=== PATIENT | female | born 1930 | race Caucasian/White ===

== ENCOUNTER 2016-12-18 08:05 | Inpatient (IN) | payer OTHER ==
--- NOTE | 2016-12-18 08:18 | PDOC ---
History of Present Illness - General History Source: Family - History of Present Illness Initial Comments: 12/18/16 08:26 The patient is an 86-year-old woman, [place] Speaking, accompanied by her daughter and son-in-law, with a significant past medical history of hypertension and skin Ca who presents to the emergency department for further evaluation of aphasia at approximately 07:30 am. Information was obtained by patients daughter, who speaks [place] and lives with patient. As per patient 's daughter, the patient is typically ambulatory, performs her daily activities independently and is verbal. Daughter states that the patient was last well seen at 21:30 PM, last night. Patient did not get up throughout the middle of the night. This morning, at approximately 07:30, the patient walked to her son- in-laws room and was noted to have right facial droop and to be non-verbal. Patients son-in-law contacted his , who was working an overnight shift in this hospital. Daughter states that the patient is able to understand and follow commands but remains non-verbal. No history of myocardial infarctions, coronary artery disease, stent placements or previous CVA/TIAs Allergies: NKDA Past Surgical History: Colonoscopy Social History: Never smoked. No ETOH and recreational drug use. Primary Care Physician: Dr. Harry Francisco <Danielle Gamble - Last Filed: 12/18/16 09:56> <Scooter Arellano - Last Filed: 12/18/16 09:57> - General Chief Complaint: CVA/TIA Stated Complaint: SLURRED SPEECH Time Seen by Provider: 12/18/16 08:11 NIH Stroke Scale - Last Known Well Date/Time & Onset Date Last Known Well: 12/17/16 Time Last Known Well: 21:30 - Initial Evaluation Level of consciousness: Alert Ask patient the month and their age: Answers both correctly Ask patient to open & close eyes; make fist and let go: Obeys both correctly Best gaze (horizontal eye movement): Normal Visual field testing: No visual field loss Facial paresis (Show teeth/raise eyebrows/close eyes tight): Minor paralysis ( flattened nasolabial fold, asymmetry on smiling) Motor Function: Left Arm: Normal Motor Function: Right Arm: Normal (extends arm 90 (or 45) degrees for 10 seconds without drift Motor Function: Left Leg: Normal (extends leg 30 degrees for 5 seconds without drift) Motor Function: Right Leg: Normal (extends leg 30 degrees for 5 seconds without drift) Limb Ataxia: No ataxia Sensory(Use pinprick test arms,legs,trunk,face/side to side): Normal Best language (Describe picture, name items, read sentences): Mute Dysarthria (read several words): Near unintelligible or unable to speak Extinction and Inattention: No abnormality - Total Score NIH Stroke Scale Score: 6 <Scooter Arellano - Last Filed: 12/18/16 09:57> tPA Exclusion checklist 3-4.5h - Thrombolytic Therapy Candidate Is patient eligible for thrombolytic therapy: No - Ineligibility reason(s) Reasons No tPA given: Outside of window - delayed arrival <Scooter Arellano - Last Filed: 12/18/16 09:57> Past History <Danielle Gamble - Last Filed: 12/18/16 09:56> - Past Medical History Cancer: Yes (skin cancer) CVA: No HTN: Yes Hypercholesterolemia: No Seizures: No - Psycho/Social/Smoking Cessation Hx Anxiety: No Suicidal Ideation: No Smoking History: Never smoked Have you smoked in the past 12 months: No Information on smoking cessation initiated: No Hx Alcohol Use: No Drug/Substance Use Hx: No Substance Use Type: None <Scooter Arellano - Last Filed: 12/18/16 09:57> - Past Medical History Allergies/Adverse Reactions: Allergies Allergy/AdvReac Type Severity Reaction Status Date / Time No Known Allergies Allergy Verified 12/18/16 08:17 Home Medications: Ambulatory Orders Amlodipine Besylate [Norvasc -] 5 mg PO DAILY 12/18/16 Aspirin [ASA -] 81 mg PO DAILY 12/18/16 Calcium Carbonate/Vitamin D3 [Calcium 600 + D3 Softgel] 1 each PO DAILY Duloxetine HCl [Cymbalta -] 20 mg PO DAILY 12/18/16 Raloxifene HCl 60 mg PO DAILY 12/18/16 Review of Systems - Review of Systems Able to Perform ROS?: No <Scooter Arellano - Last Filed: 12/18/16 09:57> *Physical Exam - Vital Signs Last Vital Signs Temp Pulse Resp BP Pulse Ox 106 H 18 168/72 92 L 12/18/16 08:05 12/18/16 08:05 12/18/16 08:05 12/18/16 08:05 - Physical Exam Comments: 12/18/16 08:27 GENERAL: Alert. Following commands. HEAD: Normal with no signs of trauma. EYES: Pupils equal, round and reactive to light, extraocular movements intact, sclera anicteric, conjunctiva clear with no pallor. ENT: Ears normal, nares patent, oropharynx clear without exudates. Moist mucous membranes. NECK: Normal range of motion, supple without lymphadenopathy, JVD, or masses. LUNGS: Breath sounds equal, clear to auscultation bilaterally. No wheeze/ crackles. HEART: Slight tachycardia but regular rate and rhythm, without murmur or rub. ABDOMEN: Soft/nontender/nondistended. BS wnl. No guarding or rebound. No palpable masses. No hepatosplenomegaly. EXTREMITIES: Normal range of motion, no edema. No clubbing or cyanosis. No cords, erythema, or tenderness. NEUROLOGICAL: See NIHSS. PSYCH: Normal mood, normal affect. SKIN: Warm, Dry, normal turgor, no rashes or lesions noted. <Danielle Gamble - Last Filed: 12/18/16 09:56> - Vital Signs Last Vital Signs Temp Pulse Resp BP Pulse Ox 106 H 18 168/72 92 L 12/18/16 08:05 12/18/16 08:05 12/18/16 08:05 12/18/16 08:05 <Scooter Arellano - Last Filed: 12/18/16 09:57> Heart Score/ECG Review #1 ECG reviewed & interpreted by me at: 08:21 General ECG Interpretation: Sinus Rhythm, Normal Rate (86), Normal Intervals ( IRBBB, QTC 459), No acute ischemic changes <Scooter Arellano - Last Filed: 12/18/16 09:57> ED Treatment Course - LABORATORY CBC & Chemistry Diagram: 12/18/16 08:25 12/18/16 08:25 - RADIOLOGY Radiograph Interpretation: 12/18/16 09:11 EXAM: CT/HEAD CT (STROKE) CT scan of the brain c-. IMPRESSION: Serial axial images of the brain were obtained from foramen magnum to the cranial vertex without intravenous contrast. The study was supplemented with computer-generated coronal and sagittal reconstruction images. [employer] Director image was reviewed. There is no evidence of acute subarachnoid hemorrhage, acute intra -axial or extra-axial fluid collection consistent with subdural or epidural hematoma. No mass effect, midline shift, herniation is present. The cortical sulci, sylvian fissures, perimesencephalic cisterns are not effaced. Lacunar infarct of indeterminate age is noted in the right thalamus measuring 6.2 mm x 2.6 mm. Decreased attenuation of the periventricular white matter is observed on the basis of small vessel ischemic disease. Bilateral (right > left) scattered subcortical hypodensities are observed on the basis of the small vessel ischemic disease. Loss of volume of the brain parenchyma with involutional changes. No evidence of hydrocephalus. Examination of the bone windows show no fracture. The visualized paranasal sinuses and mastoid air cells are clear. Symmetrical optic globes. Unremarkable retro-orbital soft tissues. EXAM: RAD/CHEST X-RAY PORTABLE IMPRESSION: Comparison study February 29, 2016. No evidence of pneumonia, CHF, pleural effusion, or pneumothorax. Unchanged contour of the cardiomediastinal silhouette. Scoliotic curvature of the thoracic spine. Intact visualized osseous structures. EKG leads are noted. <Danielle Gamble - Last Filed: 12/18/16 09:56> - LABORATORY CBC & Chemistry Diagram: 12/18/16 08:25 12/18/16 08:25 <Scooter Arellano - Last Filed: 12/18/16 09:57> Medical Decision Making - Medical Decision Making 12/18/16 09:[address] Garcia. Responsed by Dr. Sequeira at 09:54. Case was discussed. 12/18/16 09:[address] Francisco. Immediate connection. Case was discussed. <Danielle Gamble - Last Filed: 12/18/16 09:56> - Critical Care Time Total Critical Care Time (minutes): 40 Critical Care Statement: The care of this patient involved high complexity decision making to prevent further life threatening deterioration of the patient 's condition and/or to evalute & treat vital organ system(s) failure or risk of failure. - Medical Decision Making 12/18/16 08:19 A portion of this note was documented by scribe services under my direction. I have reviewed the details of the note, within reason, and agree with the documentation with the following case summary and management plan written by me. 86-year-old female with history of hypertension and high cholesterol high functioning and quite independent at baseline according by son-in-law and daughter for presumed stroke. Patient was last seen well at 9:30 last night, slept throughout the night, denies getting up at all, and was noted at 7:30 this morning to be unable to speak after she walked into her son-in-law's room. Brought immediately to the ED, is following commands but nonverbal. Exam as noted 86-year-old female with CVA, last known well without 11 hours ago. Deficits include facial droop and aphasia, extremity strength wnl. Out of window for TPA given onset time. stroke protocol initiated, neuro consult no afib on EKG will treat with asa if ct negative for bleed admission 12/18/16 09:04 CT without acute hemorrhage but evidence of ischemia. Dysphagia screen then asa. CBC wnl, remaining labs pending. Will admit. 12/18/16 09:46 Labs are within normal limits, chest x-ray pending. Accepted by Dr. Zazueta to stroke unit. Discussed with Dr. Garcia, will see the patient and agrees with care. <Scooter Arellano - Last Filed: 12/18/16 09:57> *DC/Admit/Observation/Transfer - Attestations Scribe Attestion: 12/18/16 08:28 Documentation prepared by Danielle Gamble, acting as medical office technologist for Scooter Arellano MD. <Danielle Gamble - Last Filed: 12/18/16 09:56> - Discharge Dispostion Admit: Yes <Scooter Arellano - Last Filed: 12/18/16 09:57> Diagnosis at time of Disposition: Cerebrovascular accident (CVA) Qualifiers: CVA mechanism: unspecified Qualified Code(s): I63.9 - Cerebral infarction, unspecified
[2016-12-18 08:41] LABS: BASOPHIL 0.6 % (0-2.0); EOSINOPHIL 3.5 % (0-4.5); MCH 26.9 pg (25.7-33.7); MCHC 32.4 g/dl (32.0-36.0); MEAN CELL VOLUME 83.1 fl (80-96); MEAN PLT VOLUME 8.2 fl (7.5-11.1); NEUTROPHILS 70.1 % (42.8-82.8); PLATELET COUNT 236 K/MM3 (134-434); RDW 15.6 % (11.6-15.6); WHITE BLOOD COUNT 8.5 K/mm3 (4.0-10.0)
[2016-12-18 08:58] LABS: ALBUMIN 3.5 g/dl (3.4-5.0); ANION GAP 10 (8-16); BILIRUBIN,TOTAL 0.4 mg/dL (0.2-1.0); CALCIUM 8.9 mg/dL (8.5-10.1); CHOLESTEROL 200 mg/dL (50-200); CO2 28 mmol/L (21-32); COCKROFT - GAULT 58.4715; CREATININE 0.5 mg/dL (0.55-1.02); GLUCOSE,RANDOM 100 mg/dL (74-106); LDL CHOLESTEROL (ONLY SJRH) 112 mg/dL (5-100); SGPT/ALT 27 U/L (12-78); TOT PROT 7.7 g/dl (6.4-8.2)
[2016-12-18 09:00] LABS: ALK PHOS 102 U/L (45-117); TROPONIN I < 0.02 ng/ml (0.00-0.05)
[2016-12-18 09:09] LABS: INR 1.05 (0.82-1.09); PROTHROMBIN TIME (PATIENT) 11.6 SEC (9.98-11.88)
[2016-12-18 09:11] LABS: SGOT/AST 32 U/L (15-37)
[2016-12-18] MEDS ORDERED: ASPIRIN 325 MG TABLET PO ONE (09:46)
[2016-12-18 09:57] LABS: URINE APPEARANCE CLEAR; URINE BILIRUBIN NEGATIVE (NEGATIVE); URINE BLOOD NEGATIVE (NEGATIVE); URINE COLOR STRAW; URINE GLUCOSE (UA) NEGATIVE (NEGATIVE); URINE KETONE NEGATIVE (NEGATIVE); URINE NITRITE NEGATIVE (NEGATIVE); URINE PROTEIN NEGATIVE (NEGATIVE); URINE UROBILINOGEN NEGATIVE E.U./dl (0.2-1.0)
[2016-12-18 09:59] LABS: URINE LEUK ESTERASE TRACE (NEGATIVE)
[2016-12-18] MEDS ORDERED: ASPIRIN 325 MG TABLET ONE (10:07)
[2016-12-18 10:09] LABS: URINE BACTERIA RARE /hpf (NONE SEEN); URINE RBC 1 /hpf (0-3); URINE WBC 2 /hpf (3-5)
--- NOTE | 2016-12-18 11:16 | EKG ---
Test Reason : Blood Pressure : / mmHG Vent. Rate : 086 BPM Atrial Rate : 086 BPM P-R Int : 166 ms QRS Dur : 100 ms QT Int : 384 ms P-R-T Axes : 069 034 028 degrees QTc Int : 459 ms NORMAL SINUS RHYTHM INCOMPLETE RIGHT BUNDLE BRANCH BLOCK NONSPECIFIC ST ABNORMALITY ABNORMAL ECG WHEN COMPARED WITH ECG OF 17-JUN-2002 08:56, INCOMPLETE RIGHT BUNDLE BRANCH BLOCK IS NOW PRESENT Confirmed by ESTEFANI CERNA, ADAIR ([id number]) on 12/18/2016 11:16:35 AM Referred By: Confirmed By:ADAIR JARA MD
--- NOTE | 2016-12-18 11:28 | CONSULT ---
Consult - text type - Consultation Consultation Note: Neurology History of Present Illness The patient is an 86-year-old woman, [place] Speaking, accompanied by her granddaughter with past medical history of hypertension and skin Ca who presented to the emergency department for further evaluation of aphasia at approximately 07:30 am per records. Information was obtained by patients granddaughter, who lives with patient. As per patient's granddaughter, the patient is typically ambulatory, performs her daily activities independently and is verbal. Granddaughter states that the patient was last well seen at 21: 30 PM, last night. Patient did not get up throughout the middle of the night. This morning, at approximately 07:30, the patient walked to her son-in-laws room and was noted to have right facial droop and to be having difficult producing speech. Strength and sensation does not appear to have been an issue. Reviewing her medication, I did see ASA 81mg, and granddaughter believes she is compliant with medication. She was not a TPA candidate as she was no longer in window. CT head completed and showed lacunar infarct of indeterminate age is noted in the right thalamus measuring 6.2 mm x 2.6 mm. I would expection lesion in L Broca's area not R thalamus. MRI will be needed. NIH Stroke Scale - Last Known Well Date/Time & Onset Date Last Known Well: 12/17/16 Time Last Known Well: 21:30 - Initial Evaluation Level of consciousness: Alert Ask patient the month and their age: Answers both correctly Ask patient to open & close eyes; make fist and let go: Obeys both correctly Best gaze (horizontal eye movement): Normal Visual field testing: No visual field loss Facial paresis (Show teeth/raise eyebrows/close eyes tight): Minor paralysis ( flattened nasolabial fold, asymmetry on smiling) Motor Function: Left Arm: Normal Motor Function: Right Arm: Normal (extends arm 90 (or 45) degrees for 10 seconds without drift Motor Function: Left Leg: Normal (extends leg 30 degrees for 5 seconds without drift) Motor Function: Right Leg: Normal (extends leg 30 degrees for 5 seconds without drift) Limb Ataxia: No ataxia Sensory(Use pinprick test arms,legs,trunk,face/side to side): Normal Best language (Describe picture, name items, read sentences): Mute Dysarthria (read several words): Near unintelligible or unable to speak Extinction and Inattention: No abnormality - Total Score NIH Stroke Scale Score: 6 tPA Exclusion checklist 3-4.5h - Thrombolytic Therapy Candidate Is patient eligible for thrombolytic therapy: No - Ineligibility reason(s) Reasons No tPA given: Outside of window - delayed arrival Past History Cancer: Yes (skin cancer) CVA: No HTN: Yes Hypercholesterolemia: No Seizures: No - Psycho/Social/Smoking Cessation Hx Anxiety: No Suicidal Ideation: No Smoking History: Never smoked Have you smoked in the past 12 months: No Information on smoking cessation initiated: No Hx Alcohol Use: No Drug/Substance Use Hx: No Substance Use Type: None - Past Medical History Allergies/Adverse Reactions: Allergies Allergy/AdvReac Type Severity Reaction Status Date / Time No Known Allergies Allergy Verified 12/18/16 08:17 Home Medications: Ambulatory Orders Amlodipine Besylate [Norvasc -] 5 mg PO DAILY 12/18/16 Aspirin [ASA -] 81 mg PO DAILY 12/18/16 Calcium Carbonate/Vitamin D3 [Calcium 600 + D3 Softgel] 1 each PO DAILY Duloxetine HCl [Cymbalta -] 20 mg PO DAILY 12/18/16 Raloxifene HCl 60 mg PO DAILY 12/18/16 Review of Systems - Review of Systems Able to Perform ROS?: No *Physical Exam - Vital Signs Last Vital Signs Temp Pulse Resp BP Pulse Ox 106 H 18 168/72 92 L 12/18/16 08:05 12/18/16 08:05 12/18/16 08:05 12/18/16 08:05 GENERAL: Alert. Following commands. HEAD: Normal with no signs of trauma. EYES: Pupils equal, round and reactive to light, extraocular movements intact, sclera anicteric, conjunctiva clear with no pallor. ENT: Ears normal, nares patent, oropharynx clear without exudates. Moist mucous membranes. NECK: Normal range of motion, supple without lymphadenopathy, JVD, or masses. LUNGS: Breath sounds equal, clear to auscultation bilaterally. No wheeze/ crackles. HEART: Slight tachycardia but regular rate and rhythm, without murmur or rub. ABDOMEN: Soft/nontender/nondistended. BS wnl. No guarding or rebound. No palpable masses. No hepatosplenomegaly. EXTREMITIES: Normal range of motion, no edema. No clubbing or cyanosis. No cords, erythema, or tenderness. NEUROLOGICAL: above PSYCH: Normal mood, normal affect. SKIN: Warm, Dry, normal turgor, no rashes or lesions noted. - RADIOLOGY EXAM: CT/HEAD CT (STROKE) CT scan of the brain c-. IMPRESSION: Serial axial images of the brain were obtained from foramen magnum to the cranial vertex without intravenous contrast. The study was supplemented with computer-generated coronal and sagittal reconstruction images. [employer] Operator image was reviewed. There is no evidence of acute subarachnoid hemorrhage, acute intra -axial or extra-axial fluid collection consistent with subdural or epidural hematoma. No mass effect, midline shift, herniation is present. The cortical sulci, sylvian fissures, perimesencephalic cisterns are not effaced. Lacunar infarct of indeterminate age is noted in the right thalamus measuring 6.2 mm x 2.6 mm. Decreased attenuation of the periventricular white matter is observed on the basis of small vessel ischemic disease. Bilateral (right > left) scattered subcortical hypodensities are observed on the basis of the small vessel ischemic disease. Loss of volume of the brain parenchyma with involutional changes. No evidence of hydrocephalus. Examination of the bone windows show no fracture. The visualized paranasal sinuses and mastoid air cells are clear. Symmetrical optic globes. Unremarkable retro-orbital soft tissues. EXAM: RAD/CHEST X-RAY PORTABLE IMPRESSION: Comparison study February 29, 2016. No evidence of pneumonia, CHF, pleural effusion, or pneumothorax. Unchanged contour of the cardiomediastinal silhouette. Scoliotic curvature of the thoracic spine. Intact visualized osseous structures. EKG leads are noted. CBCD WBC 8.5 K/mm3 (4.0-10.0) 12/18/16 08:25 RBC 5.64 M/mm3 (3.60-5.2) H 12/18/16 08:25 Hgb 15.2 GM/dL (10.7-15.3) 12/18/16 08:25 Hct 46.8 % (32.4-45.2) H 12/18/16 08:25 MCV 83.1 fl (80-96) 12/18/16 08:25 MCHC 32.4 g/dl (32.0-36.0) 12/18/16 08:25 RDW 15.6 % (11.6-15.6) 12/18/16 08:25 Plt Count 236 K/MM3 (134-434) 12/18/16 08:25 MPV 8.2 fl (7.5-11.1) 12/18/16 08:25 CMP Sodium 141 mmol/L (136-145) 12/18/16 08:25 Potassium 4.4 mmol/L (3.5-5.1) 12/18/16 08:25 Chloride 103 mmol/L (98-107) 12/18/16 08:25 Carbon Dioxide 28 mmol/L (21-32) 12/18/16 08:25 Anion Gap 10 (8-16) 12/18/16 08:25 BUN 18 mg/dL (7-18) 12/18/16 08:25 Creatinine 0.5 mg/dL (0.55-1.02) L 12/18/16 08:25 Creat Clearance w eGFR > 60 (>60) 12/18/16 08:25 Calcium 8.9 mg/dL (8.5-10.1) 12/18/16 08:25 Total Bilirubin 0.4 mg/dL (0.2-1.0) 12/18/16 08:25 AST 32 U/L (15-37) D 12/18/16 08:25 ALT 27 U/L (12-78) 12/18/16 08:25 Alkaline Phosphatase 102 U/L (45-117) 12/18/16 08:25 Total Protein 7.7 g/dl (6.4-8.2) 12/18/16 08:25 Albumin 3.5 g/dl (3.4-5.0) 12/18/16 08:25 Medical Decision Making 86-year-old woman, [place] Speaking, accompanied by her granddaughter with past medical history of hypertension and skin Ca who presented to the emergency department for further evaluation of aphasia. She was not a TPA candidate as she was no longer in window. CT head completed and showed lacunar infarct of indeterminate age is noted in the right thalamus measuring 6.2 mm x 2.6 mm. I would expection lesion in L Broca's area not R thalamus. MRI will be needed. Also recommend CD, Echo, Lipid profile check. Speech and swallow eval. Allow permissive HTN (up to 220/110) until tomorrow morning then up to 160/100. May need to be switched from ASA 81 to Aggrenox if CVA confirmed.
[2016-12-18 16:02] VITALS: BMI 26.2
[2016-12-18] MEDS ORDERED: DEXTROSE 5%-1/3 NS - 500 ML IV SCH (17:15)
--- NOTE | 2016-12-18 23:30 | HP ---
Admitting History and Physical - Primary Care Physician PCP: Harry Francisco - Admission Chief Complaint: Aphasia History of Present Illness: Around 7.30 this AM family noted that she was aphasic with severe difficulty in expressing but had no weakness of arms or legs.Brought to ED and a CT of the brain showed an old infarct in the thalamic area but without any new lesions. She was treated with ASA and was admitted for further management MRI of the brain was performed which showed an acute left frontal cortical infarct. History Source: Patient, Family Member Limitations to Obtaining History: No Limitations - Past Medical History Cardiovascular: Yes: HTN Musculoskeletal: Yes: Chronic low back pain, Osteoarthritis - Smoking History Smoking history: Never smoked Have you smoked in the past 12 months: No - Alcohol/Substance Use Hx Alcohol Use: No - Social History Usual Living Arrangement: Yes: Other (lives with daughter) ADL: Independent History of Recent Travel: No Home Medications - Allergies Allergies/Adverse Reactions: Allergies Allergy/AdvReac Type Severity Reaction Status Date / Time No Known Allergies Allergy Verified 12/18/16 08:17 - Home Medications Home Medications: Ambulatory Orders Amlodipine Besylate [Norvasc -] 5 mg PO DAILY 12/18/16 Aspirin [ASA -] 81 mg PO DAILY 12/18/16 Calcium Carbonate/Vitamin D3 [Calcium 600 + D3 Softgel] 1 each PO DAILY Duloxetine HCl [Cymbalta -] 20 mg PO DAILY 12/18/16 Raloxifene HCl 60 mg PO DAILY 12/18/16 Review of Systems - Review of Systems Constitutional: reports: Weakness Eyes: reports: No Symptoms HENT: reports: No Symptoms Neck: reports: No Symptoms Cardiovascular: reports: No Symptoms Respiratory: reports: No Symptoms Genitourinary: reports: No Symptoms Musculoskeletal: reports: Back Pain, Joint Pain Integumentary: reports: No Symptoms Neurological: reports: Change in Speech, Dizziness, Incoordination Endocrine: reports: No Symptoms Hematology/Lymphatic: reports: No Symptoms Psychiatric: reports: No Symptoms Physical Examination Vital Signs: Vital Signs Temperature 98.4 F 12/18/16 19:48 Pulse Rate 81 12/18/16 19:48 Respiratory Rate 18 12/18/16 19:48 Blood Pressure 132/59 12/18/16 19:48 O2 Sat by Pulse Oximetry (%) 99 12/18/16 16:32 Constitutional: Yes: Well Nourished, Anxious Eyes: Yes: WNL HENT: Yes: WNL Neck: Yes: Supple Cardiovascular: Yes: Regular Rate and Rhythm, S1, S2 Respiratory: Yes: Regular, CTA Bilaterally Gastrointestinal: Yes: Normal Bowel Sounds, Soft Breast(s): Yes: WNL Musculoskeletal: Yes: Back Pain Extremities: Yes: WNL Peripheral Pulses WNL: Yes Neurological: Yes: Alert, Oriented, Cran Nerves II-XII Intact, Dysarthria ...Motor Strength: WNL Psychiatric: Yes: Alert, Oriented Imaging - Results Cat Scan: Report Reviewed MRI: Report Reviewed, Image Reviewed EKG: Report Reviewed, Image Reviewed Problem List - Problems (1) Cerebrovascular accident (CVA) Assessment/Plan: Aphasic during admission but gradually speech became slurred and she was able to communicate Code(s): I63.9 - CEREBRAL INFARCTION, UNSPECIFIED Qualifiers: CVA mechanism: unspecified Qualified Code(s): I63.9 - Cerebral infarction, unspecified (2) Hyperlipidemia Assessment/Plan: borderline elevation of lipids Code(s): E78.5 - HYPERLIPIDEMIA, UNSPECIFIED (3) Hypertension Assessment/Plan: hypertension well controlled with meds Code(s): I10 - ESSENTIAL (PRIMARY) HYPERTENSION (4) Osteoarthritis Code(s): M19.90 - UNSPECIFIED OSTEOARTHRITIS, UNSPECIFIED SITE Assessment/Plan Continue to observe with Aspirin only at present. To physical therapy if no further neurological deficit
--- NOTE | 2016-12-19 11:50 | CONSULT ---
Admitting History and Physical - Primary Care Physician PCP: Harry Francisco - Admission History of Present Illness: Per Neuro 12/18/16 EMR: "History of Present Illness The patient is an 86-year-old woman, Russian Speaking, accompanied by her granddaughter with past medical history of hypertension and skin Ca who presented to the emergency department for further evaluation of aphasia at approximately 07:30 am per records. Information was obtained by patients granddaughter, who lives with patient. As per patient's granddaughter, the patient is typically ambulatory, performs her daily activities independently and is verbal. Granddaughter states that the patient was last well seen at 21: 30 PM, last night. Patient did not get up throughout the middle of the night. This morning, at approximately 07:30, the patient walked to her son-in-laws room and was noted to have right facial droop and to be having difficult producing speech. Strength and sensation does not appear to have been an issue. Reviewing her medication, I did see ASA 81mg, and granddaughter believes she is compliant with medication. She was not a TPA candidate as she was no longer in window. CT head completed and showed lacunar infarct of indeterminate age is noted in the right thalamus measuring 6.2 mm x 2.6 mm. I would expection lesion in L Broca's area not R thalamus. " Daughter served as informant and market research executive. She reports that her mother was always dependent on others to help her. She did not shop for groceries herself but did perform ADL. Once her father passed in [place], she brought her mother to live with her and she has cared for her. - Smoking History Smoking history: Never smoked Have you smoked in the past 12 months: No - Alcohol/Substance Use Hx Alcohol Use: No History - Admission Reason For Visit: CVA - Diagnostics MRI: Report Reviewed (Left frontal cortical and subcortical infacts) - General Mental Status: Alert and Oriented, Awake and Alert, Able to Follow Commands, Forgetful (per daughter. Not observed.) Attention: Intact Ability to Follow Directions: Good Head/Neck Control: WFL - Hearing Hearing: Normal Speech Evaluation - Communication Primary Language: EQUATORIAL GUINEAN Communication: Yes: Dysarthria Oral Expression Ability: Yes: Mild Impairment - Speech Production Able to Make Needs Known: Yes: Mildly Impaired Intelligibility: Yes: Mildly Impaired - Speech Characteristics Voice Loudness: Normal Voice Pitch: Yes: Normal Voice Phonatory-based Quality: Yes: Normal Speech Clarity: < 75% Nasal Resonance: Normal Articulation: Yes: Imprecise (mild) Rate of Speech: Intact - Language/Auditory Comprehension Follows: Yes: 1 Stage Simple Commands Observation: Able to respond to yes/no queries: Yes, Yes/No Confusion: No, Comprehends Conversational Speech: Yes - Language/Verbal Expression Able to Respond to Simple Queries: Yes: WNL Able to Communicate Wants and Needs: Yes: WNL Functional Communication Status: Yes: WNL - Swallow Evaluation/Bedside Assessment Current Nutritional Intake: Dysphagia Pureed, Thin Liquids Oral Secretions: Yes: WFL Dentition: Yes: Edentulous, Dental Appliance Upper (AT HOME) Facial Symmetry at Rest: Facial Droop Right Facial Symmetry on Retraction: Facial Droop Right Against Resistance Opening: Normal Against Resistance Closing: Normal Pucker Lips: Droops Right Smile: Droops Right Lingual Movement: Symmetric Lingual Movement Characteristics: Normal Velopharyngeal Movement: Normal Laryngeal Elevation: WFL Laryngeal Movement: Able to Palpate Rate of Intake: WFL Bolus Size: WFL Labial Seal: WFL Chewing: Impaired (missing dentition, needs very soft consistency) Oral Prep Time: WFL A-P Transit: WFL Pocketing: None Timing of Swallow: WFL Coughing/Throat Clear: No Change in Voice: No Recommendations - Speech Evaluation, Impression/Plan Impression: Language production has apparently improved as compared to documented function upon admission. She is able to express herself in sentences , stating that she lookewd in the mirror and she noted a facial droop. She is o x month, date,[facility]. Right facial with mild dysarthria at this time. Good naming, repetition,improved fluency of speech, during speech, language, cognitive, swallowing eval, with daughter serving as japanese interpreter.Not apparently Aphasic at this time, although language barrier adversely affects full w/u, based on japanese interpreter's assistance. 3 oz water test (-). Edentulous with upper dentures at home. - Disposition Discharge to: Home with Assist - Dysphagia Impressions/Plan Dysphagia Impressions: Ongoing Evaluation *Silent aspiration: cannot be R/O at bedside Dysphagia Treatment Plan: Small Bites, Chin Tuck/Down, Safe Rate, 1/2 tsp. at a time, Elevate HOB during feed Recommendations: Modified Barium Swallow (if cough, congestion, fever) - Recommendations Diet Consistency: Dysphagia Minced Liquids: Thin Liquids
--- NOTE | 2016-12-19 12:45 | CON.CARD ---
Consult Consult Specialty:: cardiology Reason for Consultation:: CVA - History of Present Illness Chief Complaint: Pt denies chest pain or dyspnea; +garbled speech History of Present Illness: The patient is an 86-year-old woman, Ugandan Speaking, accompanied by her daughter and son-in-law, with a significant past medical history of hypertension and skin Ca who presents to the emergency department for further evaluation of aphasia at approximately 07:30 am. Information was obtained by patients daughter, who speaks Ugandan and lives with patient. As per patient 's daughter, the patient is typically ambulatory, performs her daily activities independently and is verbal. Daughter states that the patient was last well seen at 21:30 PM, last night. Patient did not get up throughout the middle of the night. This morning, at approximately 07:30, the patient walked to her son- in-laws room and was noted to have right facial droop and to be non-verbal. Patients son-in-law contacted his , who was working an overnight shift in this hospital. Daughter states that the patient is able to understand and follow commands but remains non-verbal. No history of myocardial infarctions, coronary artery disease, stent placements or previous CVA/TIAs Allergies: NKDA Past Surgical History: Colonoscopy Social History: Never smoked. No ETOH and recreational drug use. Primary Care Physician: Dr. Harry Francisco - History Source History Provided By: Patient, Family Member, Medical Record Limitations to Obtaining History: No Limitations - Past Medical History Cardio/Vascular: Yes: Hyperlipdemia Reproductive: Yes: Postmenopausal ...: No Musculoskeletal: Yes: Chronic low back pain - Alcohol/Substance Use Hx Alcohol Use: No - Smoking History Smoking history: Never smoked Have you smoked in the past 12 months: No Home Medications - Allergies Allergies/Adverse Reactions: Allergies Allergy/AdvReac Type Severity Reaction Status Date / Time No Known Allergies Allergy Verified 12/18/16 08:17 - Home Medications Home Medications: Ambulatory Orders Amlodipine Besylate [Norvasc -] 5 mg PO DAILY 12/18/16 Aspirin [ASA -] 81 mg PO DAILY 12/18/16 Calcium Carbonate/Vitamin D3 [Calcium 600 + D3 Softgel] 1 each PO DAILY Duloxetine HCl [Cymbalta -] 20 mg PO DAILY 12/18/16 Raloxifene HCl 60 mg PO DAILY 04/10/17 Family Disease History - Family Disease History Family History: Denies Review of Systems - Review of Systems Constitutional: reports: Weakness Eyes: reports: No Symptoms HENT: reports: No Symptoms Neck: reports: No Symptoms Musculoskeletal: reports: Back Pain Neurological: reports: Change in Speech Psychiatric: reports: Anxiety - Risk Factors Known Risk Factors: Yes: Age, Hypercholesterolemia, Physical Inactivity Vital Signs: Vital Signs Temperature 98.4 F 12/19/16 10:00 Pulse Rate 86 12/19/16 10:00 Respiratory Rate 20 12/19/16 10:00 Blood Pressure 130/61 12/19/16 10:00 O2 Sat by Pulse Oximetry (%) 98 12/19/16 10:00 Constitutional: Yes: Anxious Eyes: Yes: WNL HENT: Yes: WNL, Other (facial droop) Neck: Yes: WNL Respiratory: Yes: Regular Gastrointestinal: Yes: Soft Renal/: No: Anuria Cardiovascular: Yes: Regular Rate and Rhythm JVD: No Carotid Bruit: No PMI: Non-Displaced Heart Sounds: Yes: S1, S2 Murmur: Yes: Systolic Murmur, Grade 1 Musculoskeletal: Yes: Back Pain, Muscle Weakness Extremities: Yes: Cool Edema: No Peripheral Pulses WNL: Yes Integumentary: Yes: WNL Neurological: Yes: Alert, Oriented Psychiatric: Yes: Alert, Oriented - Other Data Labs, Other Data: INR, PTT INR 1.05 (0.82-1.09) 12/18/16 08:25 Stress Echo: Report Reviewed Imaging - Results Chest X-ray: Image Reviewed (no acute pathology) EKG: Image Reviewed (NSR; incomplete RBBB; nonspecific T wave changes) Problem List - Problems (1) Hyperlipidemia Assessment/Plan: Start atorvastatin; keep LDL cholesterol < 70 mg/dL. F/u ECHO for LVEF, wall motion, r/o thrombi. Code(s): E78.5 - HYPERLIPIDEMIA, UNSPECIFIED (2) Cerebrovascular accident (CVA) Assessment/Plan: acute cortical infarcts. Aggressive control of BP and lipids. On ASA. F/u with neurologist. Code(s): I63.9 - CEREBRAL INFARCTION, UNSPECIFIED Qualifiers: CVA mechanism: unspecified Qualified Code(s): I63.9 - Cerebral infarction, unspecified
--- NOTE | 2016-12-19 12:56 | PN ---
Progress Note (short form) - Note Progress Note: Neurology History of Present Illness The patient is an 86-year-old woman, Welsh Speaking, accompanied by her granddaughter yesterday to ER with past medical history of hypertension and skin Ca who presented for further evaluation of aphasia. Overnight, MRI brain completed and showed acute L frontal infarct along with small chronic R frontal , R thalamic, and b/l cerebellar infarcts. Her daughter was at bedside and states her speech is much improved today. Her infarct is consistent with localization I was expecting. Her other infarcts do increase suspicion for possible emboli though these small infarcts may more likely be 2/2 to HTN. I would like to increase her to full dose ASA instead of 81mg, if PMD is in agreement. Alternatively, ASA 81 with Plavix 75 combo therapy can also be considered. Past History Cancer: Yes (skin cancer) CVA: No HTN: Yes Hypercholesterolemia: No Seizures: No - Psycho/Social/Smoking Cessation Hx Anxiety: No Suicidal Ideation: No Smoking History: Never smoked Have you smoked in the past 12 months: No Information on smoking cessation initiated: No Hx Alcohol Use: No Drug/Substance Use Hx: No Substance Use Type: None - Past Medical History Allergies/Adverse Reactions: Allergies Allergy/AdvReac Type Severity Reaction Status Date / Time No Known Allergies Allergy Verified 12/18/16 08:17 Home Medications: Ambulatory Orders Amlodipine Besylate [Norvasc -] 5 mg PO DAILY 12/18/16 Aspirin [ASA -] 81 mg PO DAILY 12/18/16 Calcium Carbonate/Vitamin D3 [Calcium 600 + D3 Softgel] 1 each PO DAILY Duloxetine HCl [Cymbalta -] 20 mg PO DAILY 12/18/16 Raloxifene HCl 60 mg PO DAILY 12/18/16 *Physical Exam Vital Signs Temperature 98.4 F 12/19/16 10:00 Pulse Rate 86 12/19/16 10:00 Respiratory Rate 20 12/19/16 10:00 Blood Pressure 130/61 12/19/16 10:00 O2 Sat by Pulse Oximetry (%) 98 12/19/16 10:00 GENERAL: Alert. Following commands. HEAD: Normal with no signs of trauma. EYES: Pupils equal, round and reactive to light, extraocular movements intact, sclera anicteric, conjunctiva clear with no pallor. ENT: Ears normal, nares patent, oropharynx clear without exudates. Moist mucous membranes. NECK: Normal range of motion, supple without lymphadenopathy, JVD, or masses. LUNGS: Breath sounds equal, clear to auscultation bilaterally. No wheeze/ crackles. HEART: Slight tachycardia but regular rate and rhythm, without murmur or rub. ABDOMEN: Soft/nontender/nondistended. BS wnl. No guarding or rebound. No palpable masses. No hepatosplenomegaly. EXTREMITIES: Normal range of motion, no edema. No clubbing or cyanosis. No cords, erythema, or tenderness. NEUROLOGICAL: CN intact, minimal dysarthria, minimal aphasia per daughter, strenght intact 5/5, sensory intact - RADIOLOGY CT head and MRI brain completed and reviewed CBCD WBC 8.5 K/mm3 (4.0-10.0) 12/18/16 08:25 RBC 5.64 M/mm3 (3.60-5.2) H 12/18/16 08:25 Hgb 15.2 GM/dL (10.7-15.3) 12/18/16 08:25 Hct 46.8 % (32.4-45.2) H 12/18/16 08:25 MCV 83.1 fl (80-96) 12/18/16 08:25 MCHC 32.4 g/dl (32.0-36.0) 12/18/16 08:25 RDW 15.6 % (11.6-15.6) 12/18/16 08:25 Plt Count 236 K/MM3 (134-434) 12/18/16 08:25 MPV 8.2 fl (7.5-11.1) 12/18/16 08:25 CMP Sodium 141 mmol/L (136-145) 12/18/16 08:25 Potassium 4.4 mmol/L (3.5-5.1) 12/18/16 08:25 Chloride 103 mmol/L (98-107) 12/18/16 08:25 Carbon Dioxide 28 mmol/L (21-32) 12/18/16 08:25 Anion Gap 10 (8-16) 12/18/16 08:25 BUN 18 mg/dL (7-18) 12/18/16 08:25 Creatinine 0.5 mg/dL (0.55-1.02) L 12/18/16 08:25 Creat Clearance w eGFR > 60 (>60) 12/18/16 08:25 Calcium 8.9 mg/dL (8.5-10.1) 12/18/16 08:25 Total Bilirubin 0.4 mg/dL (0.2-1.0) 12/18/16 08:25 AST 32 U/L (15-37) D 12/18/16 08:25 ALT 27 U/L (12-78) 12/18/16 08:25 Alkaline Phosphatase 102 U/L (45-117) 12/18/16 08:25 Total Protein 7.7 g/dl (6.4-8.2) 12/18/16 08:25 Albumin 3.5 g/dl (3.4-5.0) 12/18/16 08:25 Medical Decision Making 86-year-old woman, Welsh Speaking, accompanied by her granddaughter yesterday to ER with past medical history of hypertension and skin Ca who presented for further evaluation of aphasia. Overnight, MRI brain completed and showed acute L frontal infarct along with small chronic R frontal, R thalamic, and b/l cerebellar infarcts. Her daughter was at bedside and states her speech is much improved today. Her infarct is consistent with localization I was expecting. Her other infarcts do increase suspicion for possible emboli though these small infarcts may more likely be 2/2 to HTN. I would like to increase her to full dose ASA instead of 81mg, if PMD is in agreement. Alternatively, ASA 81 with Plavix 75 combo therapy can also be considered. Recommend CD, Echo, Lipid profile check, stain. Speech and swallow eval. BP up to 160/100 is acceptable Speech therapy, PT/OT
[2016-12-19] MEDS ORDERED: ATORVASTATIN CA 20 MG TABLET (FP) PO SCH (13:15)
--- NOTE | 2016-12-19 21:01 | PN ---
Progress Note, Physician History of Present Illness: Patient's speech improved since admission and is now almost normal' Denies any weakness in arms or legs and was able to walk this afternoon. Denies any dysphagia.Denies any incontinence. - Current Medication List Current Medications: Active Medications Aspirin (Ecotrin -) 81 mg PO DAILY [facility] Atorvastatin Calcium (Lipitor -) 20 mg PO DAILY [facility] Last Admin: 12/19/16 14:32 Dose: 20 mg Clopidogrel Bisulfate (Plavix -) 75 mg PO DAILY [facility] - Objective Vital Signs: Vital Signs Temperature 98.5 F 12/19/16 18:00 Pulse Rate 75 12/19/16 18:00 Respiratory Rate 18 12/19/16 18:00 Blood Pressure 124/57 12/19/16 18:00 O2 Sat by Pulse Oximetry (%) 98 12/19/16 20:05 Constitutional: Yes: Well Nourished, No Distress, Calm Eyes: Yes: WNL, Conjunctiva Clear, EOM Intact HENT: Yes: WNL, Atraumatic, Normocephalic Neck: Yes: WNL, Supple, Trachea Midline Cardiovascular: Yes: Regular Rate and Rhythm, S1, S2 Respiratory: Yes: Regular, CTA Bilaterally Gastrointestinal: Yes: Normal Bowel Sounds, Soft Genitourinary: Yes: WNL Breast(s): Yes: WNL Musculoskeletal: Yes: Back Pain Extremities: Yes: WNL Edema: No Peripheral Pulses WNL: Yes Integumentary: Yes: WNL Neurological: Yes: Alert, Oriented, Cran Nerves II-XII Intact ...Motor Strength: WNL Psychiatric: Yes: Alert, Oriented Labs: INR, PTT INR 1.05 (0.82-1.09) 12/18/16 08:25 - ....Imaging X-ray: Report Reviewed, Image Reviewed MRI: Report Reviewed, Image Reviewed EKG: Report Reviewed, Image Reviewed Problem List - Problems (1) Cerebrovascular accident (CVA) Assessment/Plan: MRI shows acute infarct. Will cont ecotrin and add Plavix. Code(s): I63.9 - CEREBRAL INFARCTION, UNSPECIFIED Qualifiers: CVA mechanism: unspecified Qualified Code(s): I63.9 - Cerebral infarction, unspecified (2) Hyperlipidemia Assessment/Plan: Started on Lipitor Code(s): E78.5 - HYPERLIPIDEMIA, UNSPECIFIED (3) Hypertension Code(s): I10 - ESSENTIAL (PRIMARY) HYPERTENSION (4) Osteoarthritis Code(s): M19.90 - UNSPECIFIED OSTEOARTHRITIS, UNSPECIFIED SITE Assessment/Plan Continue Aspirin and add Plavix. MRI shows patency of internal carotids. Continue physical therapy
[2016-12-19] MEDS: ASPIRIN COATED 81 MG TABLET.EC PO SCH (21:21)
[2016-12-19] MEDS: CLOPIDOGREL BISULFATE 75 MG TABLET (FP) PO SCH (21:21)
[2016-12-20 08:02] LABS: BASOPHIL 0.6 % (0-2.0); EOSINOPHIL 5.2 % (0-4.5); MCH 27.6 pg (25.7-33.7); MCHC 33.1 g/dl (32.0-36.0); MEAN CELL VOLUME 83.3 fl (80-96); MEAN PLT VOLUME 8.6 fl (7.5-11.1); NEUTROPHILS 66.3 % (42.8-82.8); PLATELET COUNT 192 K/MM3 (134-434); RDW 15.6 % (11.6-15.6); WHITE BLOOD COUNT 7.6 K/mm3 (4.0-10.0)
[2016-12-20 08:33] LABS: ALBUMIN 2.8 g/dl (3.4-5.0); ANION GAP 8 (8-16); BILIRUBIN,TOTAL 0.3 mg/dL (0.2-1.0); CALCIUM 8.3 mg/dL (8.5-10.1); CO2 31 mmol/L (21-32); COCKROFT - GAULT 72.3945; CREATININE 0.5 mg/dL (0.55-1.02); GLUCOSE,RANDOM 73 mg/dL (74-106); SGOT/AST 30 U/L (15-37); SGPT/ALT 27 U/L (12-78); TOT PROT 6.1 g/dl (6.4-8.2)
[2016-12-20 08:34] LABS: ALK PHOS 84 U/L (45-117)
[2016-12-20] MEDS: ASPIRIN COATED 81 MG TABLET.EC PO SCH (09:57)
[2016-12-20] MEDS: CLOPIDOGREL BISULFATE 75 MG TABLET (FP) PO SCH (09:57)
--- NOTE | 2016-12-20 11:56 | PN ---
Progress Note (short form) - Note Progress Note: Neurology History of Present Illness The patient is an 86-year-old woman, Cameroonian Speaking, accompanied by her granddaughter to ER with past medical history of hypertension and skin Ca who presented for further evaluation of aphasia.MRI brain completed and showed acute L frontal infarct along with small chronic R frontal, R thalamic, and b/l cerebellar infarcts. Her speech is much improved per son at bedside. Her infarct is consistent with localization I was expecting. Her other infarcts do increase suspicion for possible emboli though these small infarcts may more likely be 2/2 to HTN. Patient now on combo ASA 81 with Plavix 75. Also on Statin. Active Medications Aspirin (Ecotrin -) 81 mg PO DAILY [facility] Last Admin: 12/20/16 09:57 Dose: 81 mg Atorvastatin Calcium (Lipitor -) 20 mg PO HS [facility] Clopidogrel Bisulfate (Plavix -) 75 mg PO DAILY [facility] Last Admin: 12/20/16 09:57 Dose: 75 mg *Physical Exam Vital Signs Temperature 98.4 F 12/19/16 10:00 Pulse Rate 86 12/19/16 10:00 Respiratory Rate 20 12/19/16 10:00 Blood Pressure 130/61 12/19/16 10:00 O2 Sat by Pulse Oximetry (%) 98 12/19/16 10:00 GENERAL: Alert. Following commands. HEAD: Normal with no signs of trauma. EYES: Pupils equal, round and reactive to light, extraocular movements intact, sclera anicteric, conjunctiva clear with no pallor. ENT: Ears normal, nares patent, oropharynx clear without exudates. Moist mucous membranes. NECK: Normal range of motion, supple without lymphadenopathy, JVD, or masses. LUNGS: Breath sounds equal, clear to auscultation bilaterally. No wheeze/ crackles. HEART: Slight tachycardia but regular rate and rhythm, without murmur or rub. ABDOMEN: Soft/nontender/nondistended. BS wnl. No guarding or rebound. No palpable masses. No hepatosplenomegaly. EXTREMITIES: Normal range of motion, no edema. No clubbing or cyanosis. No cords, erythema, or tenderness. NEUROLOGICAL: CN intact, minimal dysarthria, minimal aphasia per daughter, strenght intact 5/5, sensory intact - RADIOLOGY CT head and MRI brain completed and reviewed CBCD WBC 8.5 K/mm3 (4.0-10.0) 12/18/16 08:25 RBC 5.64 M/mm3 (3.60-5.2) H 12/18/16 08:25 Hgb 15.2 GM/dL (10.7-15.3) 12/18/16 08:25 Hct 46.8 % (32.4-45.2) H 12/18/16 08:25 MCV 83.1 fl (80-96) 12/18/16 08:25 MCHC 32.4 g/dl (32.0-36.0) 12/18/16 08:25 RDW 15.6 % (11.6-15.6) 12/18/16 08:25 Plt Count 236 K/MM3 (134-434) 12/18/16 08:25 MPV 8.2 fl (7.5-11.1) 12/18/16 08:25 CMP Sodium 141 mmol/L (136-145) 12/18/16 08:25 Potassium 4.4 mmol/L (3.5-5.1) 12/18/16 08:25 Chloride 103 mmol/L (98-107) 12/18/16 08:25 Carbon Dioxide 28 mmol/L (21-32) 12/18/16 08:25 Anion Gap 10 (8-16) 12/18/16 08:25 BUN 18 mg/dL (7-18) 12/18/16 08:25 Creatinine 0.5 mg/dL (0.55-1.02) L 12/18/16 08:25 Creat Clearance w eGFR > 60 (>60) 12/18/16 08:25 Calcium 8.9 mg/dL (8.5-10.1) 12/18/16 08:25 Total Bilirubin 0.4 mg/dL (0.2-1.0) 12/18/16 08:25 AST 32 U/L (15-37) D 12/18/16 08:25 ALT 27 U/L (12-78) 12/18/16 08:25 Alkaline Phosphatase 102 U/L (45-117) 12/18/16 08:25 Total Protein 7.7 g/dl (6.4-8.2) 12/18/16 08:25 Albumin 3.5 g/dl (3.4-5.0) 12/18/16 08:25 Medical Decision Making 86-year-old woman, Cameroonian Speaking, accompanied by her granddaughter to ER with past medical history of hypertension and skin Ca who presented for further evaluation of aphasia.MRI brain completed and showed acute L frontal infarct along with small chronic R frontal, R thalamic, and b/l cerebellar infarcts. Her speech is much improved per son at bedside. Her infarct is consistent with localization I was expecting. Her other infarcts do increase suspicion for possible emboli though these small infarcts may more likely be 2/2 to HTN. Patient now on combo ASA 81 with Plavix 75 and should be continued Also on Statin and should be continued Speech therapy Follow up Echo and CD with cards BP up to 160/100 is acceptable, outpatient goal <140/90
--- NOTE | 2016-12-20 12:56 | PN ---
Progress Note, Physician History of Present Illness: The patient is an 86-year-old woman, Romanian Speaking, accompanied by her daughter and son-in-law, with a significant past medical history of hypertension and skin Ca who presents to the emergency department for further evaluation of aphasia at approximately 07:30 am. Information was obtained by patients daughter, who speaks Romanian and lives with patient. As per patient 's daughter, the patient is typically ambulatory, performs her daily activities independently and is verbal. Daughter states that the patient was last well seen at 21:30 PM, last night. Patient did not get up throughout the middle of the night. This morning, at approximately 07:30, the patient walked to her son- in-laws room and was noted to have right facial droop and to be non-verbal. Patients son-in-law contacted his , who was working an overnight shift in this hospital. Daughter states that the patient is able to understand and follow commands but remains non-verbal. No history of myocardial infarctions, coronary artery disease, stent placements or previous CVA/TIAs Allergies: NKDA Past Surgical History: Colonoscopy Social History: Never smoked. No ETOH and recreational drug use. Primary Care Physician: Dr. Harry Francisco - Current Medication List Current Medications: Active Medications Aspirin (Ecotrin -) 81 mg PO DAILY [facility] Last Admin: 12/20/16 09:57 Dose: 81 mg Atorvastatin Calcium (Lipitor -) 20 mg PO HS [facility] Clopidogrel Bisulfate (Plavix -) 75 mg PO DAILY [facility] Last Admin: 12/20/16 09:57 Dose: 75 mg - Objective Vital Signs: Vital Signs Temperature 98.4 F 12/20/16 10:00 Pulse Rate 77 12/20/16 10:00 Respiratory Rate 18 12/20/16 10:00 Blood Pressure 123/63 12/20/16 10:00 O2 Sat by Pulse Oximetry (%) 98 12/20/16 10:00 Eyes: Yes: WNL, Conjunctiva Clear, EOM Intact HENT: Yes: WNL, Atraumatic, Normocephalic Neck: Yes: WNL, Supple, Trachea Midline Cardiovascular: Yes: WNL, Regular Rate and Rhythm Respiratory: Yes: WNL, Regular, CTA Bilaterally Gastrointestinal: Yes: WNL, Normal Bowel Sounds Genitourinary: Yes: WNL Musculoskeletal: Yes: WNL Extremities: Yes: WNL Edema: No Integumentary: Yes: WNL Neurological: Yes: Alert, Oriented ...Motor Strength: WNL Psychiatric: Yes: WNL Labs: CBC, BMP 12/20/16 06:20 12/20/16 06:20 INR, PTT INR 1.05 (0.82-1.09) 12/18/16 08:25 Assessment/Plan Problems (1) Hyperlipidemia Assessment/Plan: Start atorvastatin; keep LDL cholesterol < 70 mg/dL. F/u ECHO for LVEF, wall motion, r/o thrombi. Code(s): E78.5 - HYPERLIPIDEMIA, UNSPECIFIED (2) Cerebrovascular accident (CVA) Assessment/Plan: acute cortical infarcts. aphasia improoving Aggressive control of BP and lipids. On ASA. F/u with neurologist.
--- NOTE | 2016-12-20 13:11 | PN ---
Progress Note, [employer] - Note Progress Note: Selected Entries 12/19/16 12/19/16 12/19/16 02:00 06:00 10:00 Breakfast Lunch Temperature 99.7 F H 98.2 F 98.4 F 12/19/16 12/19/16 12/19/16 11:48 14:08 18:00 Breakfast 100% Lunch 75% Temperature 97.9 F 98.5 F 12/19/16 12/20/16 12/20/16 21:25 01:00 06:00 Breakfast Lunch Temperature 98.1 F 98.1 F 98.8 F 12/20/16 12/20/16 10:00 11:12 Breakfast 25% Lunch Temperature 98.4 F Laboratory Tests 12/18/16 12/20/16 08:25 06:20 WBC 8.5 7.6 Pt's speech improving. Suspected close to baseline? Tolerating diet with signs or symptoms of dysphagia,
--- NOTE | 2016-12-20 20:58 | PN ---
Progress Note, Physician History of Present Illness: Continues improve with speech almost normal. Was able to walk in the room with some assistance. Denies any weakness of arms or legs. Denies any CP, SOB - Current Medication List Current Medications: Active Medications Aspirin (Ecotrin -) 81 mg PO DAILY [facility] Last Admin: 12/20/16 09:57 Dose: 81 mg Atorvastatin Calcium (Lipitor -) 20 mg PO [facility] Clopidogrel Bisulfate (Plavix -) 75 mg PO DAILY [facility] Last Admin: 12/20/16 09:57 Dose: 75 mg - Objective Vital Signs: Vital Signs Temperature 99.0 F 12/20/16 17:46 Pulse Rate 74 12/20/16 17:46 Respiratory Rate 18 12/20/16 17:46 Blood Pressure 137/70 12/20/16 17:46 O2 Sat by Pulse Oximetry (%) 98 12/20/16 10:00 Constitutional: Yes: Well Nourished, No Distress, Calm Eyes: Yes: WNL, Conjunctiva Clear, EOM Intact HENT: Yes: WNL Neck: Yes: WNL Cardiovascular: Yes: Regular Rate and Rhythm, S1, S2 Respiratory: Yes: Regular, CTA Bilaterally Gastrointestinal: Yes: Normal Bowel Sounds, Soft Genitourinary: Yes: WNL Musculoskeletal: Yes: Back Pain Extremities: Yes: WNL Edema: No Peripheral Pulses WNL: Yes Integumentary: Yes: WNL Neurological: Yes: Alert, Oriented, Cran Nerves II-XII Intact ...Motor Strength: WNL Psychiatric: Yes: Alert, Oriented Labs: CBC, BMP 12/20/16 06:20 12/20/16 06:20 INR, PTT INR 1.05 (0.82-1.09) 12/18/16 08:25 - ....Imaging Other: Report Reviewed Problem List - Problems (1) Cerebrovascular accident (CVA) Assessment/Plan: No change in the neuro exam, cont observation Code(s): I63.9 - CEREBRAL INFARCTION, UNSPECIFIED Qualifiers: CVA mechanism: unspecified Qualified Code(s): I63.9 - Cerebral infarction, unspecified (2) Hyperlipidemia Code(s): E78.5 - HYPERLIPIDEMIA, UNSPECIFIED (3) Hypertension Assessment/Plan: BP under good control Code(s): I10 - ESSENTIAL (PRIMARY) HYPERTENSION (4) Osteoarthritis Code(s): M19.90 - UNSPECIFIED OSTEOARTHRITIS, UNSPECIFIED SITE Assessment/Plan Echo shows mod aortic regurgitation. Neurologically continues to improve. Continue Plavix and Aspirin. Continue Physical therapy.
[2016-12-20] MEDS ORDERED: ATORVASTATIN CA 20 MG TABLET (FP) PO SCH (22:00)
[2016-12-20] MEDS ORDERED: POLYETHYLENE GLYCOL 3350 119 GM BTL PO ONE (22:30)
[2016-12-21 07:57] LABS: ALBUMIN 2.9 g/dl (3.4-5.0); ALK PHOS 88 U/L (45-117); ANION GAP 7 (8-16); BILIRUBIN,TOTAL 0.3 mg/dL (0.2-1.0); CALCIUM 8.2 mg/dL (8.5-10.1); CO2 32 mmol/L (21-32); COCKROFT - GAULT 60.3245; CREATININE 0.6 mg/dL (0.55-1.02); GLUCOSE,RANDOM 79 mg/dL (74-106); SGOT/AST 24 U/L (15-37); SGPT/ALT 26 U/L (12-78); TOT PROT 6.3 g/dl (6.4-8.2)
--- NOTE | 2016-12-21 09:21 | PN ---
Progress Note, Physician Chief Complaint: Pt denies chest pain or dyspnea. Mild right facial droop evident; speaks more clearly. History of Present Illness: The patient is an 86-year-old woman (bakari Prescott), accompanied by her daughter and son-in-law, with a significant past medical history of hypertension and skin Ca, who presents to the emergency department for further evaluation of aphasia at approximately 07:30 am. Information was obtained by patient and her daughter, who speaks Indonesian and lives with patient. Patient is typically ambulatory, performs her daily activities independently and is verbal. Daughter states that the patient was last well seen at 21:30 PM, last night. Patient did not get up throughout the middle of the night. This morning, at approximately 07:30, the patient walked to her son-in-laws room and was noted to have right facial droop and to be non-verbal. Patients son-in-law contacted his , who was working an overnight shift in this hospital. Daughter states that the patient is able to understand and follow commands but remains non- verbal. No history of myocardial infarctions, coronary artery disease, stent placements or previous CVA/TIAs Allergies: NKDA Past Surgical History: Colonoscopy Social History: Never smoked. No ETOH and recreational drug use. Primary Care Physician: Dr. Harry Francisco - Current Medication List Current Medications: Active Medications Aspirin (Ecotrin -) 81 mg PO DAILY [facility] Last Admin: 12/20/16 09:57 Dose: 81 mg Atorvastatin Calcium (Lipitor -) 20 mg PO HS [facility] Last Admin: 12/20/16 21:10 Dose: 20 mg Clopidogrel Bisulfate (Plavix -) 75 mg PO DAILY [facility] Last Admin: 12/20/16 09:57 Dose: 75 mg - Objective Vital Signs: Vital Signs Temperature 98.0 F 12/21/16 06:00 Pulse Rate 73 12/21/16 06:00 Respiratory Rate 20 12/21/16 06:00 Blood Pressure 121/59 12/21/16 06:00 O2 Sat by Pulse Oximetry (%) 96 12/20/16 21:00 Constitutional: Yes: Calm Eyes: Yes: WNL HENT: Yes: WNL Neck: Yes: WNL Cardiovascular: Yes: Regular Rate and Rhythm Respiratory: Yes: WNL Gastrointestinal: Yes: Soft ...Rectal Exam: Yes: Deferred Genitourinary: No: Anuria Breast(s): Yes: WNL Musculoskeletal: Yes: Muscle Weakness Extremities: Yes: WNL Edema: No Peripheral Pulses WNL: Yes Integumentary: Yes: WNL Neurological: Yes: Alert, Oriented, Weakness Psychiatric: Yes: WNL Labs: CBC, BMP 12/20/16 06:20 12/21/16 06:30 INR, PTT INR 1.05 (0.82-1.09) 12/18/16 08:25 Problem List - Problems (1) Hyperlipidemia Assessment/Plan: Start atorvastatin; keep LDL cholesterol < 70 mg/dL. Code(s): E78.5 - HYPERLIPIDEMIA, UNSPECIFIED (2) Cerebrovascular accident (CVA) Assessment/Plan: acute and chronic cortical infarcts. Aggressive control of BP and lipids. On ASA and clopidogrel. F/u with neurologist noted; much improved neurologically. ECHO: normal LVEF; abnormal diastolic compliance; moderate AR and TR; mild MR; no ASD, PFO, or thrombi noted. Code(s): I63.9 - CEREBRAL INFARCTION, UNSPECIFIED Qualifiers: CVA mechanism: unspecified Qualified Code(s): I63.9 - Cerebral infarction, unspecified
[2016-12-21] MEDS: ASPIRIN COATED 81 MG TABLET.EC PO SCH (09:37)
[2016-12-21] MEDS: CLOPIDOGREL BISULFATE 75 MG TABLET (FP) PO SCH (09:37)
--- NOTE | 2016-12-21 13:07 | PN ---
Progress Note (short form) - Note Progress Note: Neurology History of Present Illness The patient is an 86-year-old woman, Moh[place] Speaking, accompanied by her granddaughter to ER with past medical history of hypertension and skin Ca who presented for further evaluation of aphasia.MRI brain completed and showed acute L frontal infarct along with small chronic R frontal, R thalamic, and b/l cerebellar infarcts. Her speech is much improved per son at bedside. Her infarct is consistent with localization I was expecting. Her other infarcts do increase suspicion for possible emboli though these small infarcts may more likely be 2/2 to HTN. Patient now on combo ASA 81 with Plavix 75. Also on Statin. Echo completed and normal LV function and Ejection Fraction. Active Medications Aspirin (Ecotrin -) 81 mg PO DAILY [facility] Last Admin: 12/21/16 09:37 Dose: 81 mg Atorvastatin Calcium (Lipitor -) 20 mg PO HS [facility] Last Admin: 12/20/16 21:10 Dose: 20 mg Clopidogrel Bisulfate (Plavix -) 75 mg PO DAILY [facility] Last Admin: 12/21/16 09:37 Dose: 75 mg *Physical Exam Vital Signs Temperature 98.2 F 12/21/16 09:00 Pulse Rate 86 12/21/16 09:00 Respiratory Rate 18 12/21/16 09:00 Blood Pressure 124/63 12/21/16 09:00 O2 Sat by Pulse Oximetry (%) 96 12/20/16 21:00 GENERAL: Alert. Following commands. HEAD: Normal with no signs of trauma. EYES: Pupils equal, round and reactive to light, extraocular movements intact, sclera anicteric, conjunctiva clear with no pallor. ENT: Ears normal, nares patent, oropharynx clear without exudates. Moist mucous membranes. NECK: Normal range of motion, supple without lymphadenopathy, JVD, or masses. LUNGS: Breath sounds equal, clear to auscultation bilaterally. No wheeze/ crackles. HEART: Slight tachycardia but regular rate and rhythm, without murmur or rub. ABDOMEN: Soft/nontender/nondistended. BS wnl. No guarding or rebound. No palpable masses. No hepatosplenomegaly. EXTREMITIES: Normal range of motion, no edema. No clubbing or cyanosis. No cords, erythema, or tenderness. NEUROLOGICAL: CN intact, minimal dysarthria, minimal aphasia per daughter, strenght intact 5/5, sensory intact - RADIOLOGY CT head and MRI brain completed and reviewed CBCD WBC 7.6 K/mm3 (4.0-10.0) 12/20/16 06:20 RBC 4.73 M/mm3 (3.60-5.2) 12/20/16 06:20 Hgb 13.0 GM/dL (10.7-15.3) D 12/20/16 06:20 Hct 39.4 % (32.4-45.2) D 12/20/16 06:20 MCV 83.3 fl (80-96) 12/20/16 06:20 MCHC 33.1 g/dl (32.0-36.0) 12/20/16 06:20 RDW 15.6 % (11.6-15.6) 12/20/16 06:20 Plt Count 192 K/MM3 (134-434) 12/20/16 06:20 MPV 8.6 fl (7.5-11.1) 12/20/16 06:20 CMP Sodium 144 mmol/L (136-145) 12/21/16 06:30 Potassium 4.9 mmol/L (3.5-5.1) 12/21/16 06:30 Chloride 105 mmol/L (98-107) 12/21/16 06:30 Carbon Dioxide 32 mmol/L (21-32) 12/21/16 06:30 Anion Gap 7 (8-16) L 12/21/16 06:30 BUN 11 mg/dL (7-18) D 12/21/16 06:30 Creatinine 0.6 mg/dL (0.55-1.02) 12/21/16 06:30 Creat Clearance w eGFR > 60 (>60) 12/21/16 06:30 Calcium 8.2 mg/dL (8.5-10.1) L 12/21/16 06:30 Total Bilirubin 0.3 mg/dL (0.2-1.0) 12/21/16 06:30 AST 24 U/L (15-37) 12/21/16 06:30 ALT 26 U/L (12-78) 12/21/16 06:30 Alkaline Phosphatase 88 U/L (45-117) 12/21/16 06:30 Total Protein 6.3 g/dl (6.4-8.2) L 12/21/16 06:30 Albumin 2.9 g/dl (3.4-5.0) L 12/21/16 06:30 Medical Decision Making 86-year-old woman, Moh[place] Speaking, accompanied by her granddaughter to ER with past medical history of hypertension and skin Ca who presented for further evaluation of aphasia.MRI brain completed and showed acute L frontal infarct along with small chronic R frontal, R thalamic, and b/l cerebellar infarcts. Her speech is much improved per son at bedside. Her infarct is consistent with localization I was expecting. Her other infarcts do increase suspicion for possible emboli though these small infarcts may more likely be 2/2 to HTN. Patient now on combo ASA 81 with Plavix 75 and should be continued Also on Statin and should be continued Speech therapy Follow up Echo and CD with cards BP up to 160/100 is acceptable, outpatient goal <140/90 Family reports speech is near baseline, encouraged them to continue verbal output
--- NOTE | 2016-12-21 15:04 | DS ---
Physical Examination Vital Signs: Vital Signs Temperature 98.2 F 12/21/16 09:00 Pulse Rate 86 12/21/16 09:00 Respiratory Rate 18 12/21/16 09:00 Blood Pressure 124/63 12/21/16 09:00 O2 Sat by Pulse Oximetry (%) 96 12/21/16 09:00 Findings/Remarks: Fully recovered the speech and is ambulating. Constitutional: Yes: Well Nourished, No Distress, Calm Eyes: Yes: WNL, Conjunctiva Clear, EOM Intact HENT: Yes: WNL, Atraumatic, Normocephalic Neck: Yes: Supple Cardiovascular: Yes: Regular Rate and Rhythm, S1, S2 Respiratory: Yes: Regular, CTA Bilaterally Gastrointestinal: Yes: Normal Bowel Sounds, Soft Renal/: Yes: WNL Breast(s): Yes: WNL Musculoskeletal: Yes: Back Pain Edema: No Peripheral Pulses WNL: Yes Integumentary: Yes: WNL Neurological: Yes: Alert, Oriented ...Motor Strength: WNL Psychiatric: Yes: Alert, Oriented Labs: CBC, BMP 12/20/16 06:20 12/21/16 06:30 Discharge Summary Reason For Visit: CVA Current Active Problems Cerebrovascular accident (CVA) (Acute) Hyperlipidemia (Acute) Hypertension (Acute) Osteoarthritis (Acute) Procedures: Principal: CT scan brain. MRI of brain. Carotid duplex. Echocardiogram Hospital Course: Was admitted with aphasia but there was no other focal deficit. She was started on Aspirin. CT of brain showed old infarcts MRI of brain was done without contrast and showed an acute left frontal infarct but a;so showed small punctate infarcts. She was observed and given puree diet. She was started on PT and also showed marked in her speech, During this hosp stay her Amlodipine was d/c and BP stayed in the normal range She is being discharge home and VNS was started. Condition: Improved - Instructions Referrals: Harry Francisco MD [Primary Care Provider] - Disposition: HOME - Home Medications Comprehensive Discharge Medication List: Ambulatory Orders Amlodipine Besylate [Norvasc -] 5 mg PO DAILY 12/18/16 Aspirin [ASA -] 81 mg PO DAILY 12/18/16 Calcium Carbonate/Vitamin D3 [Calcium 600 + D3 Softgel] 1 each PO DAILY Duloxetine HCl [Cymbalta -] 20 mg PO DAILY 12/18/16 Raloxifene HCl 60 mg PO DAILY 12/18/16
[2016-12-21 15:32] VITALS: BP 119/56; PULSE 75; TEMP 97.8
== END 2016-12-21 16:55 | disposition home or self-care (01) | DRG 66 ==
LOC: JER 08:05 → JERBED 09:53 → J4S 15:36
PROVIDERS: ADMIT Internal Medicine Hematology & Oncology; ATTEND Internal Medicine Hematology & Oncology
DX: I63.8 Other cerebral infarction (principal); R29.706 NIHSS score 6; I69.320 Aphasia following cerebral infarction; I10 Essential (primary) hypertension; E78.5 Hyperlipidemia, unspecified; M54.5 Low back pain; M19.90 Unspecified osteoarthritis, unspecified site; Z85.828 Personal history of other malignant neoplasm of skin
CPT/HCPCS: 36415; 70450-TC; 70551-TC; 71010-TC; 80053; 81003; 81015; 82465; 82550; 83718; 83721; 84478; 84484; 85025; 85610; 86850; 86900; 86901; 93005; 93010; 93306-TC; 93880-TC; 97116-GP; 97161-GP; 99285-25

== ENCOUNTER 2017-04-03 05:19 | Inpatient (IN) | payer OTHER ==
[2017-04-03] MEDS ORDERED: ALBUTEROL SO4 2.5/IPRATROPIUM 0.5 INH SOL 3 ML VIAL.NEB. NEB ONE (05:27)
[2017-04-03 05:54] LABS: VENOUS PH 7.35 (7.32-7.42)
[2017-04-03 05:56] LABS: VENOUS BLOOD GAS HCO3 28.6 meq/L (19-25)
--- NOTE | 2017-04-03 05:57 | PDOC ---
Attending Attestation - Resident Resident Name: Christos Ibanez - HPI HPI: 04/06/17 01:53 Pt presents to the ED complaining of the acute onset of shortness of breath. Denies chest pain. - Physicial Exam PE: 04/06/17 01:54 Patient is tachypneic and tachycardic with rales in the bases on lung exam. - Medical Decision Making 04/06/17 01:55 Pt presents to the ED complaining of shortness of breath. Tachypneic and tachycardic on arrival to the ED. Initial EKG shows isolated SELENA in lead II. EKG evaluated by Dr. Collins, who feels that the EKG does not show ischemia. Differential includes CHF, asthma, ACS, PNA. Will check labs and CXR, admit to medicine.
[2017-04-03 06:02] LABS: BASOPHIL 0.2 % (0-2.0); EOSINOPHIL 0.4 % (0-4.5); MCH 26.7 pg (25.7-33.7); MCHC 32.4 g/dl (32.0-36.0); MEAN CELL VOLUME 82.3 fl (80-96); MEAN PLT VOLUME 8.6 fl (7.5-11.1); NEUTROPHILS 85.2 % (42.8-82.8); PLATELET COUNT 224 K/MM3 (134-434)
[2017-04-03 06:21] LABS: INR 1.16 (0.82-1.09); PROTHROMBIN TIME (PATIENT) 12.8 SEC (9.98-11.88)
[2017-04-03 06:24] LABS: ACTIVATED PTT 35.1 SECONDS (26.9-34.4)
--- NOTE | 2017-04-03 06:43 | PDOC ---
History of Present Illness - General Chief Complaint: Shortness of Breath Stated Complaint: DIFFICULTY BREATHING Time Seen by Provider: 04/03/17 05:35 History Source: Family (Mother and daughter at bedside) - History of Present Illness Initial Comments: 04/03/17 06:34 The patient is a 86F with a PMH of HTN and TIA who presented to the ED with CASSY. History was provided by the daughter and granddaughter.The daughter states that the patient had a headache last night and took 2 tylenol for this. This morning at 4 am the patient was found on the cough with difficulty breathing and gasping. the granddaughter was called and saw the patient at 430 heavily breathing but not in pain. That's when they came to [facility] ED. Allergies: None Social: none Surg: noncontributory Past History - Past Medical History Allergies/Adverse Reactions: Allergies Allergy/AdvReac Type Severity Reaction Status Date / Time No Known Allergies Allergy Verified 12/18/16 08:17 Home Medications: Ambulatory Orders Amlodipine Besylate [Norvasc -] 5 mg PO DAILY 12/18/16 Aspirin [ASA -] 81 mg PO DAILY 12/18/16 Calcium Carbonate/Vitamin D3 [Calcium 600 + D3 Softgel] 1 each PO DAILY Duloxetine HCl [Cymbalta -] 20 mg PO DAILY 12/18/16 Raloxifene HCl 60 mg PO DAILY 12/18/16 Cancer: Yes (skin cancer) CVA: No HTN: Yes Hypercholesterolemia: No Seizures: No - Immunization History Td Vaccination: No TDAP Vaccination: No Immunization Up to Date: Yes - Psycho/Social/Smoking Cessation Hx Anxiety: No Suicidal Ideation: No Smoking History: Unknown if ever smoked Have you smoked in the past 12 months: No Number of Cigarettes Smoked Daily: 1 Information on smoking cessation initiated: No Hx Alcohol Use: No Drug/Substance Use Hx: No Substance Use Type: None Review of Systems - Review of Systems Able to Perform ROS?: No *Physical Exam - Vital Signs Last Vital Signs Temp Pulse Resp BP Pulse Ox 99.2 F 95 H 40 H 126/58 100 04/03/17 05:50 04/03/17 06:00 04/03/17 06:00 04/03/17 06:00 04/03/17 06:00 - Physical Exam General Appearance: Yes: Nourished, Appropriately Dressed, Moderate Distress HEENT: positive: Normal Voice. negative: Tonsillar Exudate, Tonsillar Erythema , Excessive drooling Respiratory/Chest: positive: Respiratory Distress, Accessory Muscle Use, Decreased Breath Sounds, Crackles (b/l basilar). negative: Chest Tender Cardiovascular: positive: Regular Rhythm, S1, S2, Tachycardia Gastrointestinal/Abdominal: positive: Flat, Soft. negative: Tender Extremity: negative: Pedal Edema, Swelling, Calf Tenderness Integumentary: positive: Warm, Clammy Neurologic: positive: Motor Strength 5/5 Heart Score/ECG Review - ECG Impressions Comment:: 04/03/17 06:55 Isolated SELENA in leads III, possibly in V5 and V6. ED Treatment Course - LABORATORY CBC & Chemistry Diagram: 04/03/17 05:43 04/03/17 05:43 - ADDITIONAL ORDERS Additional order review: Laboratory Results 04/03/17 04/03/17 04/03/17 05:43 05:43 05:35 VBG pH 7.35 POC VBG pCO2 53.1 H POC VBG pO2 30.9 Mixed VBG HCO3 28.6 H Sodium Cancelled Potassium Cancelled Chloride Cancelled Carbon Dioxide Cancelled Anion Gap Cancelled BUN Cancelled Creatinine Cancelled Creat Clearance w eGFR Cancelled Random Glucose Cancelled Calcium Cancelled Total Bilirubin Cancelled AST Cancelled ALT Cancelled Alkaline Phosphatase Cancelled Creatine Kinase Cancelled Troponin I Cancelled B-Natriuretic Peptide Cancelled Total Protein Cancelled Albumin Cancelled 04/03/17 05:43 RBC 5.57 H MCV 82.3 MCHC 32.4 RDW 16.0 H MPV 8.6 Neutrophils % 85.2 H D Lymphocytes % 5.9 L D Monocytes % 8.3 Eosinophils % 0.4 D Basophils % 0.2 - RADIOLOGY Radiology Studies Ordered: Category Date Time Status CHEST X-RAY PORTABLE* [RAD] Stat Radiology 04/03/17 05:35 Taken Medical Decision Making - Medical Decision Making 04/03/17 06:51 The patient is an 86F with a PMH of HTN and TIA who presented with CASSY. We moved her to a room very quickly and assessed vitals. She was tachypneic and tachycardic, stable BP. The patient was given a nebulizer treatment and stated that she felt better although she continued to stay tachypneic and tachycardic. EKG's were questionable for a STEMI and we called Dr. Karina, who decided that he was not impressed with the EKG's. He recommended stabilizing treatments. We activated the sepsis protocol and will be monitoring the patient closely as well as the results. Patient's daughter wants her to go to [address] [place] [id number] because that's where she works.
[2017-04-03 07:02] LABS: ALBUMIN 3.6 g/dl (3.4-5.0); ANION GAP 8 (8-16); BILIRUBIN,TOTAL 0.4 mg/dL (0.2-1.0); CALCIUM 9.2 mg/dL (8.5-10.1); CO2 29 mmol/L (21-32); CREATININE 0.5 mg/dL (0.55-1.02); GLUCOSE,RANDOM 138 mg/dL (74-106); SGOT/AST 25 U/L (15-37); SGPT/ALT 22 U/L (12-78); TOT PROT 7.1 g/dl (6.4-8.2)
[2017-04-03 07:03] LABS: ALK PHOS 98 U/L (45-117)
[2017-04-03] MEDS ORDERED: ASPIRIN 81 MG CHEWABLE TABLETS PO ONE ×2 (07:29→14:30)
[2017-04-03 07:44] LABS: TROPONIN I < 0.02 ng/ml (0.00-0.05)
[2017-04-03] MEDS ORDERED: predniSONE 20 MG TABLET (UD) PO ONE (07:46)
[2017-04-03] MEDS ORDERED: CEFEPIME HCL 1 GM VIAL (RESTRICTED TO ID) IVPB ONE (07:49)
[2017-04-03] MEDS ORDERED: predniSONE 20 MG TABLET (UD) ONE (07:53)
[2017-04-03] MEDS ORDERED: CEFEPIME 100 ML IVPB ONE (07:54)
[2017-04-03] MEDS ORDERED: VANCOMYCIN 1 GRAM (PRE-DOCKED) 250 ML IVPB ONE (07:54)
[2017-04-03] MEDS ORDERED: ASPIRIN 81 MG CHEWABLE TABLETS ONE ×2 (07:54→13:38)
[2017-04-03] MEDS ORDERED: ACETAMINOPHEN/CAFFEINE/BUTALBITAL 1 TAB PO ONE (08:01)
[2017-04-03] MEDS ORDERED: ACETAMINOPHEN/CAFFEINE/BUTALBITAL 1 TAB ONE (08:17)
[2017-04-03] MEDS ORDERED: AZITHROMYCIN 250 MG TABLET (FP) PO ONE (08:26)
[2017-04-03] MEDS ORDERED: AZITHROMYCIN IVPB 500 MG in DEXTROSE 5%-WATER - 250 ML IVPB ONE (08:28)
[2017-04-03] MEDS ORDERED: AZITHROMYCIN IVPB 250 ML IVPB ONE (08:47)
--- NOTE | 2017-04-03 09:04 | PDOC ---
*Physical Exam - Vital Signs Last Vital Signs Temp Pulse Resp BP Pulse Ox 99.2 F 102 H 16 123/61 97 04/03/17 05:50 04/03/17 07:55 04/03/17 07:55 04/03/17 07:55 04/03/17 07:55 - Physical Exam General Appearance: Yes: Nourished, Appropriately Dressed, Thin HEENT: positive: EOMI, NATALIIA Neck: positive: Trachea midline, Supple Respiratory/Chest: positive: Other (Patient on 2L NC, no accessory muscle use, however labored respirations ) Cardiovascular: positive: Regular Rhythm, Regular Rate Gastrointestinal/Abdominal: positive: Normal Bowel Sounds, Flat, Soft Integumentary: positive: Normal Color, Dry, Warm Neurologic: positive: Fully Oriented, Alert ED Treatment Course - LABORATORY CBC & Chemistry Diagram: 04/03/17 05:43 04/03/17 06:28 - ADDITIONAL ORDERS Additional order review: Laboratory Results 04/03/17 04/03/17 04/03/17 06:28 06:28 05:43 INR PTT (Actin FS) VBG pH POC VBG pCO2 POC VBG pO2 Mixed VBG HCO3 Sodium 139 Potassium 4.3 Chloride 102 Carbon Dioxide 29 Anion Gap 8 BUN 16 D Creatinine 0.5 L Creat Clearance w eGFR > 60 Random Glucose 138 H D Lactic Acid Calcium 9.2 Total Bilirubin 0.4 D AST 25 ALT 22 Alkaline Phosphatase 98 Creatine Kinase 49 Troponin I < 0.02 B-Natriuretic Peptide Cancelled Total Protein 7.1 Albumin 3.6 D Anti-A Titer Blood Type Antibody Screen Spec Expiration Date 04/03/17 04/03/17 04/03/17 05:43 05:43 05:43 INR PTT (Actin FS) VBG pH POC VBG pCO2 POC VBG pO2 Mixed VBG HCO3 Sodium Cancelled Potassium Cancelled Chloride Cancelled Carbon Dioxide Cancelled Anion Gap Cancelled BUN Cancelled Creatinine Cancelled Creat Clearance w eGFR Cancelled Random Glucose Cancelled Lactic Acid 2.0 Calcium Cancelled Total Bilirubin Cancelled AST Cancelled ALT Cancelled Alkaline Phosphatase Cancelled Creatine Kinase Cancelled Troponin I Cancelled B-Natriuretic Peptide Total Protein Cancelled Albumin Cancelled Anti-A Titer Cancelled Blood Type Cancelled Antibody Screen Cancelled Spec Expiration Date Cancelled 04/03/17 04/03/17 05:43 05:35 INR 1.16 H PTT (Actin FS) 35.1 H VBG pH 7.35 POC VBG pCO2 53.1 H POC VBG pO2 30.9 Mixed VBG HCO3 28.6 H Sodium Potassium Chloride Carbon Dioxide Anion Gap BUN Creatinine Creat Clearance w eGFR Random Glucose Lactic Acid Calcium Total Bilirubin AST ALT Alkaline Phosphatase Creatine Kinase Troponin I B-Natriuretic Peptide Total Protein Albumin Anti-A Titer Blood Type Antibody Screen Spec Expiration Date 04/03/17 05:43 RBC 5.57 H MCV 82.3 MCHC 32.4 RDW 16.0 H MPV 8.6 Neutrophils % 85.2 H D Lymphocytes % 5.9 L D Monocytes % 8.3 Eosinophils % 0.4 D Basophils % 0.2 - Medications Given in the ED: ED Medications Discontinued Medications Generic Name Dose Route Start Last Admin Trade Name Freq PRN Reason Stop Dose Admin Acetaminophen/Butalbital/Caffeine 1 tablet 04/03/17 08:01 04/03/17 08:19 Fioricet - PO 04/03/17 08:02 1 tablet ONCE ONE Administration Aspirin 162 mg 04/03/17 07:29 04/03/17 07:55 Asa - PO 04/03/17 07:30 162 mg ONCE ONE Administration Cefepime HCl 1 gm 04/03/17 07:49 04/03/17 07:55 Maxipime (Restricted To Id) - IVPB 04/03/17 07:50 1 gm ONCE ONE Administration Protocol Prednisone 40 mg 04/03/17 07:46 04/03/17 07:55 Deltasone - PO 04/03/17 07:47 40 mg ONCE ONE Administration Medical Decision Making - Medical Decision Making 04/03/17 09:31 Patient signed out by Drs. John (Attending) and Shamar (resident) Patient is a 86 y.o. female who presents with shortness of breath. As patient was SIRS 2/4 (tachycardia (100's), tachypnea (30's-40's) Blood Cultures and CXR were ordered. CXR showed no acute cardiopulmonary process. EKG showed a RBB, and cardiology consult did not reccomend w/u for GA. Patient's PCP, Dr. Zazueta , was contacted and patient was started on Zithromax, Cefepime and Vancomycin at his instruction and admitted to Telemetry for observation. *DC/Admit/Observation/Transfer Diagnosis at time of Disposition: Respiratory distress, acute - Discharge Dispostion Admit: Yes - Referrals - Patient Instructions - Post Discharge Activity - Attestations Physician Attestion: 04/03/17 09:09 I, Dr. Francoise Castellanos, attest that this document has been prepared under my direction and personally reviewed by me in its entirety. I further attest, that it accurately reflects all work, treatment, procedures and medical decision -making performed by me.
[2017-04-03 09:42] LABS: URINE APPEARANCE CLEAR; URINE BILIRUBIN NEGATIVE (NEGATIVE); URINE BLOOD NEGATIVE (NEGATIVE); URINE COLOR YELLOW; URINE GLUCOSE (UA) NEGATIVE (NEGATIVE); URINE KETONE NEGATIVE (NEGATIVE); URINE LEUK ESTERASE NEGATIVE (NEGATIVE); URINE NITRITE NEGATIVE (NEGATIVE); URINE PROTEIN NEGATIVE (NEGATIVE); URINE UROBILINOGEN NEGATIVE mg/dL (0.2-1.0)
[2017-04-03] MEDS ORDERED: VANCOMYCIN 2,000 MG in DEXTROSE 5%-WATER - 500 ML IVPB SCH (10:00)
[2017-04-03 12:07] VITALS: BMI 24.4
--- NOTE | 2017-04-03 13:15 | EKG ---
Test Reason : Blood Pressure : / mmHG Vent. Rate : 086 BPM Atrial Rate : 086 BPM P-R Int : 176 ms QRS Dur : 104 ms QT Int : 374 ms P-R-T Axes : 068 005 024 degrees QTc Int : 447 ms NORMAL SINUS RHYTHM ATRIAL ABNORMALITY INCOMPLETE RIGHT BUNDLE BRANCH BLOCK INFERIOR INFARCT (CITED ON OR BEFORE 03-APR-2017) ACUTE SD / STEMI ABNORMAL ECG PERSISTANT Q WAVES III AND aVF AND UPWARDS COVING OF ST SEGMENTS IN II, III aVF COMPATIBLE WITH CURRENT OF INJURY. T WAVE INVERSION NO LONGER EVIDENT IN ANTEROLATERAL LEADS FOLLOW TRACINGS ARE RECOMMENDED Confirmed by LINDA DAWKINS MD ([id number]) on 04/03/2017 1:15:23 PM Referred By: Confirmed By:LINDA DAWKINS MD
[2017-04-03 13:50] LABS: TROPONIN I < 0.02 ng/ml (0.00-0.05)
[2017-04-03] MEDS ORDERED: HEPARIN INFUSION - 500 ML IVPB ONE (14:02)
[2017-04-03] MEDS ORDERED: METOPROLOL TARTRATE 25 MG TABLET (FP) ONE (14:04)
--- NOTE | 2017-04-03 14:06 | EKG ---
Test Reason : Blood Pressure : / mmHG Vent. Rate : 098 BPM Atrial Rate : 098 BPM P-R Int : 184 ms QRS Dur : 100 ms QT Int : 340 ms P-R-T Axes : 080 021 033 degrees QTc Int : 434 ms POOR DATA QUALITY, INTERPRETATION MAY BE ADVERSELY AFFECTED SINUS RHYTHM LOW VOLTAGE QRS INCOMPLETE RIGHT BUNDLE BRANCH BLOCK UPWARD COVING OF ST SEGMENTS IN II III AVF EITHER RELATED TO EARLY REPOLARIZATION OR CURRENT OF INJURY T WAVE ABNORMALITY, CONSIDER ANTEROLATERAL ISCHEMIA OR RELATED TO LEAD POSITION RECOMMEND FOLLOW UP TRACINGS ABNORMAL ECG WHEN COMPARED WITH ECG OF 18-DEC-2016 08:21, INFERIOR INFARCT IS NOW PRESENT T WAVE INVERSION NOW EVIDENT IN ANTEROLATERAL LEADS Confirmed by LINDA DAWKINS MD ([id number]) on 04/03/2017 2:05:36 PM Referred By: Confirmed By:LINDA DAWKINS MD
[2017-04-03] MEDS ORDERED: HEPARIN NA (PORCINE) 5,000 UNITS/ML 1ML VIAL IVPUSH PRN ×2 (14:14)
[2017-04-03] MEDS ORDERED: HEPARIN NA (PORCINE) 5,000 UNITS/ML 1ML VIAL IVPUSH ONE (14:14)
[2017-04-03] MEDS: HEPARIN INFUSION - 500 ML IVPB SCH (14:15)
[2017-04-03] MEDS ORDERED: METOPROLOL TARTRATE 25 MG TABLET (FP) PO ONE (14:30)
[2017-04-03] MEDS ORDERED: CLOPIDOGREL BISULFATE 75 MG TABLET (FP) ONE (14:39)
--- NOTE | 2017-04-03 14:45 | CON.CARD ---
Consult Consult Specialty:: cardiology Reason for Consultation:: r/o STEMI - History of Present Illness History of Present Illness: The patient is an 86F with a PMH of HTN and TIA (?CVA) 12/2016, with residual slower mental response, per family, who presented to the ED with headache that began about 9pm and tachypnea with shortness of breath noted around 4 am by family.. History was provided by the daughter and granddaughter.The daughter states that the patient had a headache last night and took 2 tylenol for this. This morning at 4 am the patient was found on the cough with difficulty breathing and gasping. the granddaughter was called and saw the patient at 430 heavily breathing but not in pain. That's when they came to [facility] ED. Pt is porr historian; with repeated questioning by both granddaughter maura CERNA, she says she someimes has mild brief sharp central chest pain with deep breath; no chest pain with change in position. Allergies: None Social: none Surg: noncontributory Past History - History Source History Provided By: Patient, Family Member, Medical Record Limitations to Obtaining History: Poor Historian - Past Medical History Cardio/Vascular: Yes: HTN Musculoskeletal: Yes: Chronic low back pain, Osteoarthritis - Alcohol/Substance Use Hx Alcohol Use: No - Smoking History Smoking history: Current some day smoker Have you smoked in the past 12 months: No Aproximately how many cigarettes per day: 1 - Social History ADL: Independent History of Recent Travel: No Home Medications - Allergies Allergies/Adverse Reactions: Allergies Allergy/AdvReac Type Severity Reaction Status Date / Time No Known Allergies Allergy Verified 12/18/16 08:17 - Home Medications Home Medications: Ambulatory Orders Amlodipine Besylate [Norvasc -] 5 mg PO DAILY 12/18/16 Aspirin [ASA -] 81 mg PO DAILY 12/18/16 Calcium Carbonate/Vitamin D3 [Calcium 600 + D3 Softgel] 1 each PO DAILY Duloxetine HCl [Cymbalta -] 20 mg PO DAILY 12/18/16 Raloxifene HCl 60 mg PO DAILY 12/18/16 Vital Signs: Vital Signs Temperature 98.6 F 04/03/17 14:00 Pulse Rate 96 H 04/03/17 14:00 Respiratory Rate 20 04/03/17 14:00 Blood Pressure 125/65 04/03/17 14:00 O2 Sat by Pulse Oximetry (%) 99 04/03/17 12:00 - Other Data Labs, Other Data: INR, PTT INR 1.16 (0.82-1.09) H 04/03/17 05:43 Troponin, BNP 04/03/17 13:05 Troponin I < 0.02 Troponin, BNP 04/03/17 13:05 Troponin I < 0.02 Problem List - Problems (1) Respiratory distress, acute Assessment/Plan: low-grade temp; leukocytosis ?right-sided atelectasis. On O2; f/u O2 sat. Is and Os; weight; BUn/Cr, electrolytes; BNP. Code(s): R06.00 - DYSPNEA, UNSPECIFIED (2) Cerebrovascular accident (CVA) Assessment/Plan: hx lacunar infarct (noted 12/2016: of indeterminate age). Aggressive control of BP and lipids. F/u with neurology. Code(s): I63.9 - CEREBRAL INFARCTION, UNSPECIFIED Qualifiers: Qualified Code(s): I63.9 - Cerebral infarction, unspecified (3) Hyperlipidemia Assessment/Plan: Keep LDL cholesterol < 70 mg/dL. Code(s): E78.5 - HYPERLIPIDEMIA, UNSPECIFIED (4) Hypertension Code(s): I10 - ESSENTIAL (PRIMARY) HYPERTENSION (5) Chest pain Assessment/Plan: r/o STEMI (less likely: TNI < 0.02 x 2, the 2nd >8 hours after symptoms began); r/o pericarditis/myopericarditis. elevated WBCs; low-grade temp; ?right-sided atelectasis on CXR aytpical presentation: predominately shortness of breath, with vague description of mild chest pain with cough. ST elevation leads II, III, aVF; depressed CO; no reciprocal changes. TNI < 0.02 x 2 (7 hours apart). ECHO preliminary reading: normal LVEF without regional wall motion abnormalities ; moderate AR; no significant pericardial effusion. On IV heparin; given ASA 325 mg and clopidogrel 75 mg; given metoprolol 12.5 mg , atorvastatin 80 mg. Serial EKGs, TNI. If anti-inflammatory is to be used, would recommend ASA 650 q 4-6 hours. Code(s): R07.9 - CHEST PAIN, UNSPECIFIED
[2017-04-03] MEDS: CLOPIDOGREL BISULFATE 75 MG TABLET (FP) PO SCH (14:49)
[2017-04-03] MEDS ORDERED: ATORVASTATIN CA 80 MG TABLET (FP) PO ONE (15:00)
--- NOTE | 2017-04-03 15:16 | EKG ---
Test Reason : Blood Pressure : / mmHG Vent. Rate : 094 BPM Atrial Rate : 094 BPM P-R Int : 178 ms QRS Dur : 102 ms QT Int : 364 ms P-R-T Axes : 066 003 033 degrees QTc Int : 455 ms NORMAL SINUS RHYTHM INCOMPLETE RIGHT BUNDLE BRANCH BLOCK PERSISTANT Q WAVES AND ST ELIVATIONS IN LEADS II III aVF ABNORMAL ECG WHEN COMPARED WITH ECG OF 03-APR-2017 12:44, NO SIGNIFICANT CHANGE WAS FOUND Confirmed by LINDA DAWKINS MD ([id number]) on 04/03/2017 3:15:58 PM Referred By: TABITHA KATHLEEN Confirmed By:LINDA DAWKINS MD
[2017-04-03 17:47] LABS: TROPONIN I < 0.02 ng/ml (0.00-0.05)
[2017-04-03] MEDS ORDERED: ATORVASTATIN CA 20 MG TABLET (FP) PO SCH (22:00)
--- NOTE | 2017-04-03 23:58 | HP ---
Admitting History and Physical - Primary Care Physician PCP: Harry Francisco - Admission Chief Complaint: Chest pain and SOB History of Present Illness: Could not sleep due to chest pain and then started with SOB and got out of bed and went to the couch around 4.30 AM and was brought to ER, EKG showed ST elevation but Troponin was not elevated and she was admitted and started on IV Heparin she now feels much better. She had a CVA about 3 months ago with full recovery. 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 Cardiovascular: Yes: HTN Musculoskeletal: Yes: Chronic low back pain, Osteoarthritis - Smoking History Smoking history: Never smoked Have you smoked in the past 12 months: No Aproximately how many cigarettes per day: 1 - Alcohol/Substance Use Hx Alcohol Use: No - Social History ADL: Independent History of Recent Travel: No Home Medications - Allergies Allergies/Adverse Reactions: Allergies Allergy/AdvReac Type Severity Reaction Status Date / Time No Known Allergies Allergy Verified 12/18/16 08:17 - Home Medications Home Medications: Ambulatory Orders Amlodipine Besylate [Norvasc -] 5 mg PO DAILY 12/18/16 Aspirin [ASA -] 81 mg PO DAILY 12/18/16 Calcium Carbonate/Vitamin D3 [Calcium 600 + D3 Softgel] 1 each PO DAILY Duloxetine HCl [Cymbalta -] 20 mg PO DAILY 12/18/16 Raloxifene HCl 60 mg PO DAILY 12/18/16 Review of Systems - Review of Systems Constitutional: reports: No Symptoms Eyes: reports: No Symptoms HENT: reports: No Symptoms Neck: reports: Pain on Movement Cardiovascular: reports: Chest Pain, Shortness of Breath Respiratory: reports: SOB Gastrointestinal: reports: Constipation Genitourinary: reports: No Symptoms Breasts: reports: No Symptoms Reported Musculoskeletal: reports: Back Pain Integumentary: reports: No Symptoms Neurological: reports: No Symptoms Endocrine: reports: No Symptoms Psychiatric: reports: No Symptoms Physical Examination Vital Signs: Vital Signs Temperature 97.4 F L 04/03/17 20:22 Pulse Rate 94 H 04/03/17 20:22 Respiratory Rate 20 04/03/17 20:22 Blood Pressure 133/70 04/03/17 20:22 O2 Sat by Pulse Oximetry (%) 96 04/03/17 20:22 Constitutional: Yes: Well Nourished, Calm Eyes: Yes: WNL HENT: Yes: WNL Neck: Yes: WNL, Supple, Trachea Midline Cardiovascular: Yes: Regular Rate and Rhythm, S1, S2 Respiratory: Yes: CTA Bilaterally Gastrointestinal: Yes: Normal Bowel Sounds, Soft Musculoskeletal: Yes: Back Pain, Joint Stiffness Extremities: Yes: WNL Edema: No Peripheral Pulses WNL: Yes Integumentary: Yes: WNL Neurological: Yes: Alert, Oriented Imaging - Results X-ray: Report Reviewed, Image Reviewed EKG: Report Reviewed, Image Reviewed Problem List - Problems (1) Chest pain Assessment/Plan: EKG showed ST elevation in II, III amd F without reciprocal changes and also without any enzyme elevation, may be indicative of IHD Code(s): R07.9 - CHEST PAIN, UNSPECIFIED (2) Respiratory distress, acute Code(s): R06.00 - DYSPNEA, UNSPECIFIED (3) Hyperlipidemia Code(s): E78.5 - HYPERLIPIDEMIA, UNSPECIFIED (4) Hypertension Assessment/Plan: BP is under good control Code(s): I10 - ESSENTIAL (PRIMARY) HYPERTENSION Assessment/Plan IMP: CHEST Pain Acute respirtory distress Episode of AFIB in ED. Plan: Was started on IV Heparin and maintained on ASA and Plavix after which her chest pain subsided.Will get serial enzymes and EJKG. Holter monitor to assess episodes of AFIB.
[2017-04-04 01:29] LABS: CHOLESTEROL 121 mg/dL (50-200); LDL CHOLESTEROL (ONLY SJRH) 40 mg/dL (5-100)
[2017-04-04] MEDS: CLOPIDOGREL BISULFATE 75 MG TABLET (FP) PO SCH (09:36)
[2017-04-04] MEDS: HEPARIN INFUSION - 500 ML IVPB SCH ×3 (09:36→22:39)
[2017-04-04] MEDS: AZITHROMYCIN IVPB 250 ML IVPB SCH (09:36)
[2017-04-04] MEDS: ASPIRIN COATED 81 MG TABLET.EC PO SCH (09:36)
--- NOTE | 2017-04-04 09:46 | PN ---
Progress Note, Physician History of Present Illness: The patient is an 86F with a PMH of HTN and TIA (?CVA) 12/2016, with residual slower mental response, per family, who presented to the ED with headache that began about 9pm and tachypnea with shortness of breath noted around 4 am by family.. History was provided by the daughter and granddaughter.The daughter states that the patient had a headache last night and took 2 tylenol for this. This morning at 4 am the patient was found on the cough with difficulty breathing and gasping. the granddaughter was called and saw the patient at 430 heavily breathing but not in pain. That's when they came to [facility] ED. Pt is porr historian; with repeated questioning by both granddaughter maura CERNA, she says she someimes has mild brief sharp central chest pain with deep breath; no chest pain with change in position. - Current Medication List Current Medications: Active Medications Aspirin (Ecotrin -) 81 mg PO DAILY [facility] Last Admin: 04/04/17 09:36 Dose: 81 mg Atorvastatin Calcium (Lipitor -) 20 mg PO [facility] Clopidogrel Bisulfate (Plavix -) 75 mg PO DAILY [facility] Last Admin: 04/04/17 09:36 Dose: 75 mg Heparin Sodium (Porcine) (Heparin -) 5,000 unit IVPUSH PRN PRN Heparin Sodium (Porcine) (Heparin -) 1,000 unit IVPUSH PRN PRN Last Admin: 04/04/17 09:37 Dose: 1,000 unit Azithromycin (Zithromax 500mg Ivpb (Pre-Docked)) 250 mls @ 250 mls/hr IVPB DAILY [facility] Last Admin: 04/04/17 09:36 Dose: 250 mls/hr Heparin Sodium/Dextrose (Heparin Infusion -) 500 mls @ 16 mls/hr IVPB TITR [facility] ; 800 UNITS/HR PRN Reason: Protocol Last Admin: 04/04/17 09:36 Dose: 16 mls/hr Vancomycin HCl 2,000 mg/ (Dextrose) 500 mls @ 250 mls/hr IVPB DAILY [facility] PRN Reason: Protocol - Objective Vital Signs: Vital Signs Temperature 98 F 04/04/17 09:00 Pulse Rate 102 H 04/04/17 09:00 Respiratory Rate 20 04/04/17 09:00 Blood Pressure 108/65 04/04/17 09:00 O2 Sat by Pulse Oximetry (%) 96 04/04/17 09:00 Eyes: Yes: WNL, Conjunctiva Clear, EOM Intact HENT: Yes: WNL, Atraumatic, Normocephalic Neck: Yes: WNL, Supple, Trachea Midline Cardiovascular: Yes: Pulse Irregular Respiratory: Yes: WNL, Regular, CTA Bilaterally Gastrointestinal: Yes: WNL, Normal Bowel Sounds Genitourinary: Yes: WNL Musculoskeletal: Yes: WNL Extremities: Yes: WNL Edema: No Integumentary: Yes: WNL Neurological: Yes: WNL, Alert, Oriented ...Motor Strength: WNL Psychiatric: Yes: WNL Labs: INR, PTT INR 1.16 (0.82-1.09) H 04/03/17 05:43 Assessment/Plan - Problems (1) Respiratory distress, acute Assessment/Plan: low-grade temp; leukocytosis ?right-sided atelectasis. On O2; f/u O2 sat. Is and Os; weight; BUn/Cr, electrolytes; BNP. Code(s): R06.00 - DYSPNEA, UNSPECIFIED (2) Cerebrovascular accident (CVA) Assessment/Plan: hx lacunar infarct (noted 12/2016: of indeterminate age). Aggressive control of BP and lipids. F/u with neurology. Code(s): I63.9 - CEREBRAL INFARCTION, UNSPECIFIED Qualifiers: Qualified Code(s): I63.9 - Cerebral infarction, unspecified (3) Hyperlipidemia Assessment/Plan: Keep LDL cholesterol < 70 mg/dL. Code(s): E78.5 - HYPERLIPIDEMIA, UNSPECIFIED (4) Hypertension Code(s): I10 - ESSENTIAL (PRIMARY) HYPERTENSION (5) Chest pain Assessment/Plan: r/o STEMI (less likely: TNI < 0.02 x 2, the 2nd >8 hours after symptoms began); r/o pericarditis/myopericarditis. elevated WBCs; low-grade temp; ?right-sided atelectasis on CXR aytpical presentation: predominately shortness of breath, with vague description of mild chest pain with cough. ST elevation leads II, III, aVF; depressed VT; no reciprocal changes. TNI < 0.02 x 2 (7 hours apart). ECHO preliminary reading: normal LVEF without regional wall motion abnormalities ; moderate AR; no significant pericardial effusion. On IV heparin; given ASA 325 mg and clopidogrel 75 mg; given metoprolol 12.5 mg , atorvastatin 80 mg. Serial EKGs, TNI. If anti-inflammatory is to be used, would recommend ASA 650 q 4-6 hours. 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
[2017-04-04] MEDS ORDERED: VANCOMYCIN 2,000 MG in DEXTROSE 5%-WATER - 500 ML IVPB SCH (10:00)
--- NOTE | 2017-04-04 12:47 | EKG ---
Test Reason : Blood Pressure : / mmHG Vent. Rate : 100 BPM Atrial Rate : 108 BPM P-R Int : 000 ms QRS Dur : 104 ms QT Int : 358 ms P-R-T Axes : 000 012 016 degrees QTc Int : 461 ms ATRIAL FIBRILLATION INCOMPLETE RIGHT BUNDLE BRANCH BLOCK POSSIBLE INFERIOR INFARCT (CITED ON OR BEFORE 04-APR-2017) ABNORMAL ECG WHEN COMPARED WITH ECG OF 03-APR-2017 15:09, ATRIAL FIBRILLATION HAS REPLACED SINUS RHYTHM NON-SPECIFIC CHANGE IN ST SEGMENT IN ANTERIOR LEADS Confirmed by OSCAR PRAKASH MD ([id number]) on 04/04/2017 12:46:24 PM Referred By: Darrel ESQUIVEL Confirmed By:OSCAR PRAKASH MD
[2017-04-04] MEDS: ATORVASTATIN CA 40 MG TABLET (FP) PO SCH (21:33)
--- NOTE | 2017-04-04 23:59 | PN ---
Progress Note, Physician History of Present Illness: Denies SOB or chest pain.No cough or hemoptysis - Current Medication List Current Medications: Active Medications Aspirin (Ecotrin -) 81 mg PO DAILY [facility] Last Admin: 04/04/17 09:36 Dose: 81 mg Atorvastatin Calcium (Lipitor -) 40 mg PO HS [facility] Last Admin: 04/04/17 21:33 Dose: 40 mg Clopidogrel Bisulfate (Plavix -) 75 mg PO DAILY [facility] Last Admin: 04/04/17 09:36 Dose: 75 mg Heparin Sodium (Porcine) (Heparin -) 5,000 unit IVPUSH PRN PRN Heparin Sodium (Porcine) (Heparin -) 1,000 unit IVPUSH PRN PRN Last Admin: 04/04/17 09:37 Dose: 1,000 unit Azithromycin (Zithromax 500mg Ivpb (Pre-Docked)) 250 mls @ 250 mls/hr IVPB DAILY [facility] Last Admin: 04/04/17 09:36 Dose: 250 mls/hr Heparin Sodium/Dextrose (Heparin Infusion -) 500 mls @ 16 mls/hr IVPB TITR [facility] ; 800 UNITS/HR PRN Reason: Protocol Last Admin: 04/04/17 22:39 Dose: 16 mls/hr Vancomycin HCl 2,000 mg/ (Dextrose) 500 mls @ 250 mls/hr IVPB DAILY [facility] PRN Reason: Protocol - Objective Vital Signs: Vital Signs Temperature 98.2 F 04/04/17 21:00 Pulse Rate 96 H 04/04/17 21:00 Respiratory Rate 18 04/04/17 21:00 Blood Pressure 113/53 04/04/17 21:00 O2 Sat by Pulse Oximetry (%) 96 04/04/17 21:00 Constitutional: Yes: No Distress, Calm Eyes: Yes: WNL HENT: Yes: WNL Neck: Yes: Supple Cardiovascular: Yes: Regular Rate and Rhythm, S1, S2 Respiratory: Yes: Regular, CTA Bilaterally Gastrointestinal: Yes: Normal Bowel Sounds, Soft Genitourinary: Yes: WNL Musculoskeletal: Yes: Back Pain Extremities: Yes: WNL Edema: No Peripheral Pulses WNL: Yes Integumentary: Yes: WNL Neurological: Yes: Alert, Oriented ...Motor Strength: WNL Psychiatric: Yes: Alert Labs: INR, PTT INR 1.16 (0.82-1.09) H 04/03/17 05:43 Problem List - Problems (1) Chest pain Assessment/Plan: Chest pain all night associated SOB and ST elevation in II,III and F suggestive of acute IHD but enzymes did change and chest pain subsided. Code(s): R07.9 - CHEST PAIN, UNSPECIFIED (2) Respiratory distress, acute Code(s): R06.00 - DYSPNEA, UNSPECIFIED (3) Hyperlipidemia Assessment/Plan: controlled with atorvastatin Code(s): E78.5 - HYPERLIPIDEMIA, UNSPECIFIED (4) Hypertension Code(s): I10 - ESSENTIAL (PRIMARY) HYPERTENSION (5) Osteoarthritis Code(s): M19.90 - UNSPECIFIED OSTEOARTHRITIS, UNSPECIFIED SITE Assessment/Plan IMP: Chest pain with ST elvation lung infiltrate Hypertension. Plan:Continue to monitor with serial EKG and enzymes, Heparinize. Due to recent Acute CVA and patient's advanced age family will be included in the discussion about future course of action.
[2017-04-05] MEDS: AZITHROMYCIN IVPB 250 ML IVPB SCH (09:19)
[2017-04-05] MEDS: CLOPIDOGREL BISULFATE 75 MG TABLET (FP) PO SCH (09:20)
[2017-04-05] MEDS: ASPIRIN COATED 81 MG TABLET.EC PO SCH (09:20)
--- NOTE | 2017-04-05 09:43 | PN ---
Progress Note, Physician Chief Complaint: Pt alrt; asymptomatic History of Present Illness: The patient is an 86F with a PMH of HTN and TIA (?CVA) 12/2016, with residual slower mental response, per family, who presented to the ED with headache that began about 9pm and tachypnea with shortness of breath noted around 4 am by family.. History was provided by the daughter and granddaughter.The daughter states that the patient had a headache last night and took 2 tylenol for this. This morning at 4 am the patient was found on the cough with difficulty breathing and gasping. the granddaughter was called and saw the patient at 430 heavily breathing but not in pain. That's when they came to [facility] ED. Pt is porr historian; with repeated questioning by both granddaughter maura CERNA, she says she someimes has mild brief sharp central chest pain with deep breath; no chest pain with change in position. Allergies: None Social: none Surg: noncontributory Past History - Current Medication List Current Medications: Active Medications Aspirin (Ecotrin -) 81 mg PO DAILY [facility] Last Admin: 04/05/17 09:20 Dose: 81 mg Atorvastatin Calcium (Lipitor -) 40 mg PO HS [facility] Last Admin: 04/04/17 21:33 Dose: 40 mg Clopidogrel Bisulfate (Plavix -) 75 mg PO DAILY [facility] Last Admin: 04/05/17 09:20 Dose: 75 mg Heparin Sodium (Porcine) (Heparin -) 5,000 unit IVPUSH PRN PRN Heparin Sodium (Porcine) (Heparin -) 1,000 unit IVPUSH PRN PRN Last Admin: 04/04/17 09:37 Dose: 1,000 unit Azithromycin (Zithromax 500mg Ivpb (Pre-Docked)) 250 mls @ 250 mls/hr IVPB DAILY [facility] Last Admin: 04/05/17 09:19 Dose: 250 mls/hr Heparin Sodium/Dextrose (Heparin Infusion -) 500 mls @ 16 mls/hr IVPB TITR [facility] ; 800 UNITS/HR PRN Reason: Protocol Last Admin: 04/04/17 22:39 Dose: 16 mls/hr Vancomycin HCl 2,000 mg/ (Dextrose) 500 mls @ 250 mls/hr IVPB DAILY [facility] PRN Reason: Protocol - Objective Vital Signs: Vital Signs Temperature 98 F 04/05/17 06:00 Pulse Rate 96 H 04/05/17 06:00 Respiratory Rate 18 04/05/17 06:00 Blood Pressure 122/66 04/05/17 06:00 O2 Sat by Pulse Oximetry (%) 96 04/04/17 21:00 Constitutional: Yes: Calm Eyes: Yes: WNL HENT: Yes: WNL Cardiovascular: Yes: Regular Rate and Rhythm Respiratory: Yes: WNL Gastrointestinal: Yes: Soft ...Rectal Exam: Yes: Deferred Genitourinary: No: Anuria Musculoskeletal: Yes: Muscle Weakness Extremities: Yes: Cool Edema: No Peripheral Pulses WNL: Yes Integumentary: Yes: WNL Neurological: Yes: Alert, Weakness Psychiatric: Yes: WNL Labs: INR, PTT INR 1.16 (0.82-1.09) H 04/03/17 05:43 - ....Imaging Other: Image Reviewed (telemetry: NSR; r/o prolonged pause vs artfifact early am ) Problem List - Problems (1) Respiratory distress, acute Assessment/Plan: low-grade temp; leukocytosis ?right-sided atelectasis. On O2; f/u O2 sat. Is and Os; weight; BUn/Cr, electrolytes; BNP. Code(s): R06.00 - DYSPNEA, UNSPECIFIED (2) Cerebrovascular accident (CVA) Assessment/Plan: hx lacunar infarct (noted 12/2016: of indeterminate age). Aggressive control of BP and lipids. F/u with neurology. Code(s): I63.9 - CEREBRAL INFARCTION, UNSPECIFIED Qualifiers: CVA mechanism: unspecified Qualified Code(s): I63.9 - Cerebral infarction, unspecified (3) Hyperlipidemia Assessment/Plan: Keep LDL cholesterol < 70 mg/dL. Code(s): E78.5 - HYPERLIPIDEMIA, UNSPECIFIED (4) Hypertension Code(s): I10 - ESSENTIAL (PRIMARY) HYPERTENSION (5) Chest pain Assessment/Plan: r/o STEMI (less likely: TNI < 0.02 x 2, the 2nd >8 hours after symptoms began); r/o pericarditis/myopericarditis. elevated WBCs; low-grade temp; ?right-sided atelectasis on CXR aytpical presentation: predominately shortness of breath, with vague description of mild chest pain with cough. ST elevation leads II, III, aVF; depressed [place]; no reciprocal changes. TNI < 0.02 x 2 (7 hours apart). ECHO preliminary reading: normal LVEF without regional wall motion abnormalities ; moderate AR; no significant pericardial effusion. On IV heparin; given ASA 325 mg and clopidogrel 75 mg; given metoprolol 12.5 mg , atorvastatin 80 mg. Serial EKGs, TNI. If anti-inflammatory is to be used, would recommend ASA 650 q 4-6 hours. Code(s): R07.9 - CHEST PAIN, UNSPECIFIED (6) Atrial fibrillation Assessment/Plan: noted on EKG today. On IV heparin fr days due to r/o acute coronary syndrome; would recommend starting warfarin or NOAC. F/u Holter (telemetry shows possible pause vs artifact). F/u TFTs. Code(s): I48.91 - UNSPECIFIED ATRIAL FIBRILLATION (7) Elevated LFTs Assessment/Plan: mild LFT elevation after multiple antibiotics; resolved ST elevation of inferior leads; now with AF. Code(s): R79.89 - OTHER SPECIFIED ABNORMAL FINDINGS OF BLOOD CHEMISTRY
[2017-04-05] MEDS: POLYETHYLENE GLYCOL 3350 119 GM BTL PO SCH (15:21)
--- NOTE | 2017-04-05 15:52 | HOL ---
Hook-up date: 2017-04-04 13:53:00 Duration: 23:05:00 Test Indications: PAF Medications: 062720 QRS complexes 222 Ventricular ectopics which represent <1 % of total QRS comp. 5204 Supraventricular ectopics which represent 4 % of total QRS comp. * Paced QRS complexs which represent % of total QRS comp. * % of Time Classified as Noise VENTRICULAR ECTOPY 220 Isolated 0 Bigeminal Cycles 1 Couplets 0 Runs 0 Beats in Runs * Beats LONGEST at * BPM at :: -- * Beats FASTEST at * BPM at :: -- SUPRAVENTRICULAR ECTOPY 5133 Isolated 18 Couplets 10 Runs 35 Beats in Runs 5 Beats LONGEST at 108 BPM at 00:02:37 2017-04-05 3 Beats FASTEST at 140 BPM at 17:13:38 2017-04-04 HEART RATES 24 MIN at 08:05:52 2017-04-05 85 AVG 151 MAX at 19:03:20 2017-04-04 LONGEST RR 5.528 secs at 08:05:43 2017-04-05 SCANNED BY JOEY OSEGUERA 04/05/2017 1. Baseline sinus rhythm with periods of what appears to be atrial flutter with RVR at times (up to 150s). Avg HR 85 with range 24-151. 2. Several episodes of sinus arrest with longest pause 5.5 seconds. 3. Occasional PVCs. Frequent PACs. 4. No VT or VF. 5. No diary submitted. Confirmed by TAQUERIA CERNA, SERA ([id number]) on 04/05/2017 3:51:33 PM Referred By: Overread By: SERA MENG MD
[2017-04-05] MEDS: ATORVASTATIN CA 40 MG TABLET (FP) PO SCH (21:03)
--- NOTE | 2017-04-05 22:34 | PN ---
Progress Note, Physician History of Present Illness: Denies any chest pain or SOB or any palpitations. - Current Medication List Current Medications: Active Medications Aspirin (Ecotrin -) 81 mg PO DAILY REPLACED BY [facility] Last Admin: 04/05/17 09:20 Dose: 81 mg Atorvastatin Calcium (Lipitor -) 40 mg PO HS REPLACED BY [facility] Last Admin: 04/05/17 21:03 Dose: 40 mg Clopidogrel Bisulfate (Plavix -) 75 mg PO DAILY REPLACED BY [facility] Last Admin: 04/05/17 09:20 Dose: 75 mg Azithromycin (Zithromax 500mg Ivpb (Pre-Docked)) 250 mls @ 250 mls/hr IVPB DAILY REPLACED BY [facility] Last Admin: 04/05/17 09:19 Dose: 250 mls/hr Vancomycin HCl 2,000 mg/ (Dextrose) 500 mls @ 250 mls/hr IVPB DAILY REPLACED BY [facility] PRN Reason: Protocol Polyethylene Glycol (Miralax (For Daily Use) -) 17 gm PO DAILY REPLACED BY [facility] Last Admin: 04/05/17 15:21 Dose: 17 g - Objective Vital Signs: Vital Signs Temperature 98.0 F 04/05/17 17:00 Pulse Rate 86 04/05/17 17:00 Respiratory Rate 18 04/05/17 20:54 Blood Pressure 118/65 04/05/17 17:00 O2 Sat by Pulse Oximetry (%) 97 04/05/17 20:54 Constitutional: Yes: Well Nourished, No Distress, Calm Eyes: Yes: WNL HENT: Yes: WNL Neck: Yes: Supple, Trachea Midline Cardiovascular: Yes: Regular Rate and Rhythm, S1, S2 Respiratory: Yes: Regular, CTA Bilaterally Gastrointestinal: Yes: Normal Bowel Sounds, Soft Genitourinary: Yes: WNL Musculoskeletal: Yes: Back Pain, Joint Stiffness Extremities: Yes: WNL Edema: No Peripheral Pulses WNL: Yes Integumentary: Yes: WNL Neurological: Yes: Alert, Oriented ...Motor Strength: WNL Psychiatric: Yes: Alert, Oriented Labs: INR, PTT INR 1.16 (0.82-1.09) H 04/03/17 05:43 - ....Imaging Other: Report Reviewed (holter monitor) Problem List - Problems (1) Chest pain Assessment/Plan: Since admission hasn't c/o any chest pain.Echocardiogram does not show any hypokinesia but mod AR Code(s): R07.9 - CHEST PAIN, UNSPECIFIED (2) Respiratory distress, acute Assessment/Plan: No resp distress Code(s): R06.00 - DYSPNEA, UNSPECIFIED (3) Hyperlipidemia Code(s): E78.5 - HYPERLIPIDEMIA, UNSPECIFIED (4) Hypertension Code(s): I10 - ESSENTIAL (PRIMARY) HYPERTENSION (5) Osteoarthritis Code(s): M19.90 - UNSPECIFIED OSTEOARTHRITIS, UNSPECIFIED SITE Assessment/Plan Trust Mail Clerk to decide bout Persantine stress test. She is now maintained on Plavix and Ecotrin. Holter monitor shows VR max of 151 with 1% VPB and mostly NSR
[2017-04-06 07:35] LABS: BASOPHIL 0.8 % (0-2.0); EOSINOPHIL 5.1 % (0-4.5); MCH 27.3 pg (25.7-33.7); MCHC 33.4 g/dl (32.0-36.0); MEAN PLT VOLUME 8.4 fl (7.5-11.1); NEUTROPHILS 72.1 % (42.8-82.8); PLATELET COUNT 211 K/MM3 (134-434); RDW 15.8 % (11.6-15.6); WHITE BLOOD COUNT 7.1 K/mm3 (4.0-10.0)
[2017-04-06 08:38] LABS: ALBUMIN 2.7 g/dl (3.4-5.0); ALK PHOS 90 U/L (45-117); ANION GAP 6 (8-16); BILIRUBIN,TOTAL 0.6 mg/dL (0.2-1.0); CALCIUM 8.2 mg/dL (8.5-10.1); CO2 32 mmol/L (21-32); CREATININE 0.4 mg/dL (0.55-1.02); GLUCOSE,RANDOM 89 mg/dL (74-106); SGOT/AST 60 U/L (15-37); SGPT/ALT 82 U/L (12-78); TOT PROT 5.9 g/dl (6.4-8.2)
--- NOTE | 2017-04-06 09:46 | PN ---
Progress Note, Physician Chief Complaint: Pt without palpitations, dyspnea, chest pain; moves all extremities on request. History of Present Illness: The patient is an 86F with a PMH of HTN and CVA 12/2016, with residual slower mental response, per family, who presented to the ED with headache that began about 9pm and tachypnea with shortness of breath noted around 4 am by family.. History was provided by the daughter and granddaughter.The daughter states that the patient had a headache last night and took 2 tylenol for this. This morning at 4 am the patient was found on the cough with difficulty breathing and gasping. the granddaughter was called and saw the patient at 430 heavily breathing but not in pain. That's when they came to [facility] ED. Pt is porr historian; with repeated questioning by both granddaughter maura CERNA, she says she someimes has mild brief sharp central chest pain with deep breath; no chest pain with change in position. Allergies: None Social: none Surg: noncontributory Past History - Current Medication List Current Medications: Active Medications Aspirin (Ecotrin -) 81 mg PO DAILY [facility] Last Admin: 04/05/17 09:20 Dose: 81 mg Atorvastatin Calcium (Lipitor -) 40 mg PO HS [facility] Last Admin: 04/05/17 21:03 Dose: 40 mg Clopidogrel Bisulfate (Plavix -) 75 mg PO DAILY [facility] Last Admin: 04/05/17 09:20 Dose: 75 mg Vancomycin HCl 2,000 mg/ (Dextrose) 500 mls @ 250 mls/hr IVPB DAILY [facility] PRN Reason: Protocol Polyethylene Glycol (Miralax (For Daily Use) -) 17 gm PO DAILY [facility] Last Admin: 04/05/17 15:21 Dose: 17 g - Objective Vital Signs: Vital Signs Temperature 98.1 F 04/06/17 05:32 Pulse Rate 90 04/06/17 05:32 Respiratory Rate 18 04/06/17 05:32 Blood Pressure 131/69 04/06/17 05:32 O2 Sat by Pulse Oximetry (%) 97 04/05/17 20:54 Constitutional: Yes: No Distress Eyes: Yes: WNL HENT: Yes: WNL Neck: Yes: WNL Cardiovascular: Yes: Pulse Irregular Respiratory: Yes: Regular Gastrointestinal: Yes: Soft ...Rectal Exam: Yes: Deferred Genitourinary: No: Anuria Breast(s): Yes: WNL Musculoskeletal: Yes: Muscle Weakness Extremities: Yes: Cool Edema: No Peripheral Pulses WNL: Yes Integumentary: Yes: WNL Neurological: Yes: Alert, Oriented, Weakness Psychiatric: Yes: WNL Labs: CBC, BMP 04/06/17 05:35 04/06/17 05:35 INR, PTT INR 1.16 (0.82-1.09) H 04/03/17 05:43 Abnormal Lab Results 04/06/17 04/06/17 05:35 05:35 RDW 15.8 H Eosinophils % 5.1 H D Anion Gap 6 L Creatinine 0.4 L Calcium 8.2 L AST 60 H D ALT 82 H D Total Protein 5.9 L Albumin 2.7 L D Problem List - Problems (1) Respiratory distress, acute Assessment/Plan: afebrile; WBC now normal; no longer in respiratory distress. Code(s): R06.00 - DYSPNEA, UNSPECIFIED (2) Cerebrovascular accident (CVA) Assessment/Plan: hx lacunar infarct (noted 12/2016: of indeterminate age). Aggressive control of BP and lipids. Noted: episodes of PAF; recommend starting warfarin or NOAC. For electrophysiology consult ("sinus arrest with pauses as long as 5.5 seconds " on 04/05/2017 Holter). F/u with neurology. Code(s): I63.9 - CEREBRAL INFARCTION, UNSPECIFIED Qualifiers: CVA mechanism: unspecified Qualified Code(s): I63.9 - Cerebral infarction, unspecified (3) Hyperlipidemia Assessment/Plan: Keep LDL cholesterol < 70 mg/dL. Code(s): E78.5 - HYPERLIPIDEMIA, UNSPECIFIED (4) Hypertension Code(s): I10 - ESSENTIAL (PRIMARY) HYPERTENSION (5) Chest pain Assessment/Plan: no further chest pain EKG 04/04/17: AF; inc RBBB; STT elevation essentially resolved. EKG 04/06/17: NSR; nonspecific ST-T changes. TNI < 0.02 x 3. Code(s): R07.9 - CHEST PAIN, UNSPECIFIED (6) Atrial fibrillation Assessment/Plan: holter monitor report 04/05/2017: NSR; periods of atrial flutter; episodes of sinus arrest (maximum pause 5.5 seconds). TSH WNL. Dr. Vinicius Preciado, EP, will evaluate pt. Recommend starting warfarin or NOAC Code(s): I48.91 - UNSPECIFIED ATRIAL FIBRILLATION (7) Elevated LFTs Assessment/Plan: mild LFT elevation after multiple antibiotics; resolved ST elevation of inferior leads; now with AF. Code(s): R79.89 - OTHER SPECIFIED ABNORMAL FINDINGS OF BLOOD CHEMISTRY
[2017-04-06] MEDS: ASPIRIN COATED 81 MG TABLET.EC PO SCH (10:22)
[2017-04-06] MEDS: CLOPIDOGREL BISULFATE 75 MG TABLET (FP) PO SCH (10:22)
[2017-04-06] MEDS: POLYETHYLENE GLYCOL 3350 119 GM BTL PO SCH (10:22)
[2017-04-06 11:50] LABS: THYROID STIMULATING HORMONE 0.78 uIU/ml (0.358-3.74)
[2017-04-06 15:31] LABS: CPK 37 IU/L (26-192); TROPONIN I < 0.02 ng/ml (0.00-0.05)
[2017-04-06] MEDS: ATORVASTATIN CA 40 MG TABLET (FP) PO SCH (21:38)
--- NOTE | 2017-04-06 22:09 | PN ---
Progress Note, Physician History of Present Illness: Denies any chest pain, SOB or palpitations - Current Medication List Current Medications: Active Medications Aspirin (Ecotrin -) 81 mg PO DAILY [facility] Last Admin: 04/06/17 10:22 Dose: 81 mg Atorvastatin Calcium (Lipitor -) 40 mg PO HS [facility] Last Admin: 04/06/17 21:38 Dose: 40 mg Clopidogrel Bisulfate (Plavix -) 75 mg PO DAILY [facility] Last Admin: 04/06/17 10:22 Dose: 75 mg Vancomycin HCl 2,000 mg/ (Dextrose) 500 mls @ 250 mls/hr IVPB DAILY [facility] PRN Reason: Protocol Polyethylene Glycol (Miralax (For Daily Use) -) 17 gm PO DAILY [facility] Last Admin: 04/06/17 10:22 Dose: 17 g - Objective Vital Signs: Vital Signs Temperature 98.2 F 04/06/17 17:00 Pulse Rate 84 04/06/17 17:00 Respiratory Rate 18 04/06/17 17:00 Blood Pressure 102/50 04/06/17 17:00 O2 Sat by Pulse Oximetry (%) 97 04/06/17 09:00 Constitutional: Yes: Well Nourished, No Distress, Calm Eyes: Yes: WNL HENT: Yes: WNL Neck: Yes: Supple Cardiovascular: Yes: Regular Rate and Rhythm, S1, S2 Respiratory: Yes: Regular, CTA Bilaterally Gastrointestinal: Yes: Normal Bowel Sounds, Soft Genitourinary: Yes: WNL Musculoskeletal: Yes: Back Pain Extremities: Yes: WNL Edema: No Peripheral Pulses WNL: Yes Integumentary: Yes: WNL Neurological: Yes: Alert, Oriented ...Motor Strength: WNL Psychiatric: Yes: Alert, Oriented Labs: CBC, BMP 04/06/17 05:35 04/06/17 05:35 INR, PTT INR 1.16 (0.82-1.09) H 04/03/17 05:43 Problem List - Problems (1) Chest pain Assessment/Plan: No further chest pain, or SOB Code(s): R07.9 - CHEST PAIN, UNSPECIFIED (2) Respiratory distress, acute Code(s): R06.00 - DYSPNEA, UNSPECIFIED (3) Hyperlipidemia Code(s): E78.5 - HYPERLIPIDEMIA, UNSPECIFIED (4) Hypertension Assessment/Plan: BP under control Code(s): I10 - ESSENTIAL (PRIMARY) HYPERTENSION (5) Osteoarthritis Code(s): M19.90 - UNSPECIFIED OSTEOARTHRITIS, UNSPECIFIED SITE (6) Paroxysmal atrial fibrillation Assessment/Plan: Holter monitor records occasional episodes of AFib and also a 5.5 second pause Code(s): I48.0 - PAROXYSMAL ATRIAL FIBRILLATION Assessment/Plan IMP: Chest pain Paroxysmal AFIB Hypertension. Plan: Chest pain subsided as well as sob.Ekg changes suggest ischemic HD.But Echo showed good LV function A long pause on Holter of 5.5 seconds without syncopal episode in the past was discussed with Dr. Aguirre and he will ask to give his opinion.
[2017-04-07] MEDS: DOCUSATE SODIUM 100 MG CAPSULE (FP) PO SCH ×2 (06:41→13:18)
[2017-04-07 07:01] VITALS: PULSE 83
[2017-04-07 08:01] LABS: ALBUMIN 2.7 g/dl (3.4-5.0); ANION GAP 7 (8-16); CALCIUM 8.3 mg/dL (8.5-10.1); CO2 32 mmol/L (21-32); GLUCOSE,RANDOM 81 mg/dL (74-106)
[2017-04-07 08:05] LABS: ALK PHOS 100 U/L (45-117); BILIRUBIN,TOTAL 0.4 mg/dL (0.2-1.0); CREATININE 0.5 mg/dL (0.55-1.02); SGOT/AST 46 U/L (15-37); SGPT/ALT 75 U/L (12-78); TOT PROT 5.9 g/dl (6.4-8.2)
[2017-04-07] MEDS: ASPIRIN COATED 81 MG TABLET.EC PO SCH (10:26)
[2017-04-07] MEDS: CLOPIDOGREL BISULFATE 75 MG TABLET (FP) PO SCH (10:26)
--- NOTE | 2017-04-07 12:02 | PN ---
Progress Note, Physician Chief Complaint: Pt is lying in bed.without palpitations, dyspnea, chest pain; her daughter, Christina, is at bedside. History of Present Illness: The patient is an 86F with a PMH of HTN and CVA 12/2016, with residual slower mental response, per family, who presented to the ED with headache that began about 9pm and tachypnea with shortness of breath noted around 4 am by family.. History was provided by the daughter and granddaughter.The daughter states that the patient had a headache last night and took 2 tylenol for this. This morning at 4 am the patient was found on the cough with difficulty breathing and gasping. the granddaughter was called and saw the patient at 430 heavily breathing but not in pain. That's when they came to [facility] ED. Pt is porr historian; with repeated questioning by both granddaughter maura CERNA, she says she someimes has mild brief sharp central chest pain with deep breath; no chest pain with change in position. Allergies: None Social: none Surg: noncontributory Past History - Current Medication List Current Medications: Active Medications Aspirin (Ecotrin -) 81 mg PO DAILY [facility] Last Admin: 04/07/17 10:26 Dose: 81 mg Atorvastatin Calcium (Lipitor -) 40 mg PO HS [facility] Last Admin: 04/06/17 21:38 Dose: 40 mg Clopidogrel Bisulfate (Plavix -) 75 mg PO DAILY [facility] Last Admin: 04/07/17 10:26 Dose: 75 mg Docusate Sodium (Colace -) 100 mg PO TID [facility] Last Admin: 04/07/17 06:41 Dose: 100 mg Vancomycin HCl 2,000 mg/ (Dextrose) 500 mls @ 250 mls/hr IVPB DAILY [facility] PRN Reason: Protocol - Objective Vital Signs: Vital Signs Temperature 98.1 F 04/07/17 06:00 Pulse Rate 83 04/07/17 06:00 Respiratory Rate 20 04/07/17 06:00 Blood Pressure 107/54 04/07/17 06:00 O2 Sat by Pulse Oximetry (%) 97 04/06/17 21:00 Constitutional: Yes: Calm Labs: CBC, BMP 04/06/17 05:35 04/07/17 05:35 INR, PTT INR 1.16 (0.82-1.09) H 04/03/17 05:43 Problem List - Problems (1) Respiratory distress, acute Code(s): R06.00 - DYSPNEA, UNSPECIFIED (2) Cerebrovascular accident (CVA) Assessment/Plan: hx lacunar infarct (noted 12/2016: of indeterminate age). Aggressive control of BP and lipids. Noted: episodes of PAF; recommend starting warfarin or NOAC. For electrophysiology consult ("sinus arrest with pauses as long as 5.5 seconds " on 04/05/2017 Holter). F/u with neurology. Code(s): I63.9 - CEREBRAL INFARCTION, UNSPECIFIED Qualifiers: CVA mechanism: unspecified Qualified Code(s): I63.9 - Cerebral infarction, unspecified (3) Hyperlipidemia Assessment/Plan: Keep LDL cholesterol < 70 mg/dL. Code(s): E78.5 - HYPERLIPIDEMIA, UNSPECIFIED (4) Hypertension Code(s): I10 - ESSENTIAL (PRIMARY) HYPERTENSION (5) Chest pain Assessment/Plan: no further chest pain EKG 04/04/17: AF; inc RBBB; STT elevation essentially resolved. EKG 04/06/17: NSR; nonspecific ST-T changes. TNI < 0.02 x 3. Discussed pt's status with Dr. Zazueta and pt's daughter, Christina. Cannot entirely r/o ACS, but family defers stress test presently (they do not want her to go through angiogram should the stress test be positive). Code(s): R07.9 - CHEST PAIN, UNSPECIFIED (6) Atrial fibrillation Assessment/Plan: As discussed with Dr. Preciado today, pt does not have symptoms related to the pauses noted on Holter and telemetry, and can be followed as an outpatient, where he will place a 30 day monitor. Eliquis will be started. Code(s): I48.91 - UNSPECIFIED ATRIAL FIBRILLATION (7) Elevated LFTs Assessment/Plan: mild LFT elevation after multiple antibiotics; resolved ST elevation of inferior leads; now with AF. Code(s): R79.89 - OTHER SPECIFIED ABNORMAL FINDINGS OF BLOOD CHEMISTRY
[2017-04-07] MEDS ORDERED: APIXABAN 2.5 MG TABLET PO SCH (12:30)
[2017-04-07 14:52] VITALS: BP 135/65; TEMP 97.9
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
--- NOTE | 2017-04-08 18:16 | EKG ---
Test Reason : Blood Pressure : / mmHG Vent. Rate : 082 BPM Atrial Rate : 082 BPM P-R Int : 160 ms QRS Dur : 110 ms QT Int : 384 ms P-R-T Axes : 076 033 032 degrees QTc Int : 448 ms SINUS RHYTHM WITH OCCASIONAL PREMATURE VENTRICULAR COMPLEXES INCOMPLETE RIGHT BUNDLE BRANCH BLOCK NONSPECIFIC ST ABNORMALITY ABNORMAL ECG WHEN COMPARED WITH ECG OF 06-APR-2017 09:50, PREMATURE VENTRICULAR COMPLEXES ARE NOW PRESENT Confirmed by LINDA DAWKINS MD ([id number]) on 04/08/2017 6:15:34 PM Referred By: Darrel ESQUIVEL Confirmed By:LINDA DAWKINS MD
--- NOTE | 2017-04-09 09:56 | EKG ---
Test Reason : Blood Pressure : / mmHG Vent. Rate : 085 BPM Atrial Rate : 085 BPM P-R Int : 162 ms QRS Dur : 104 ms QT Int : 368 ms P-R-T Axes : 077 018 021 degrees QTc Int : 437 ms NORMAL SINUS RHYTHM INCOMPLETE RIGHT BUNDLE BRANCH BLOCK NONSPECIFIC ST AND T WAVE ABNORMALITY ABNORMAL ECG WHEN COMPARED WITH ECG OF 04-APR-2017 08:56, SINUS RHYTHM HAS REPLACED ATRIAL FIBRILLATION Confirmed by AMERICO CERNA, ELIANA ([id number]) on 04/09/2017 9:55:55 AM Referred By: TABITHA KATHLEEN Confirmed By:ELIANA RDISCOLL MD
== END 2017-04-07 16:00 | disposition home or self-care (01) | DRG 309 ==
LOC: JER 05:19 → JERBED 08:43 → J4W 12:10
PROVIDERS: ADMIT Internal Medicine Hematology & Oncology; ATTEND Internal Medicine Hematology & Oncology
DX: I48.0 Paroxysmal atrial fibrillation (principal); J98.11 Atelectasis; R06.82 Tachypnea, not elsewhere classified; R00.0 Tachycardia, unspecified; I10 Essential (primary) hypertension; M54.5 Low back pain; M19.90 Unspecified osteoarthritis, unspecified site; I49.5 Sick sinus syndrome; R07.89 Other chest pain; E78.5 Hyperlipidemia, unspecified; R79.89 Other specified abnormal findings of blood chemistry; Z85.828 Personal history of other malignant neoplasm of skin; Z86.73 Personal history of transient ischemic attack (TIA), and cerebral infarction without residual deficits
CPT/HCPCS: 36415; 71010-TC; 80053; 80061; 81003; 82550; 82803; 83605; 83721; 83880; 84443; 84484; 85025; 85610; 85730; 87040; 87086; 93005; 93010; 93225; 93226; 93306-TC; 99285-25; J1644

== ENCOUNTER 2017-09-18 09:17 | Emergency (ER) | payer OTHER ==
[2017-09-18 09:31] VITALS: BMI 23.4
[2017-09-18] MEDS ORDERED: OXYMETAZOLINE 0.05% NASAL SOLUTION 15 ML BOTTLE NS ONE (09:43)
[2017-09-18] MEDS ORDERED: SODIUM CHLORIDE 0.9% 500 ML INFUS.BAG IV ONE (09:57)
--- NOTE | 2017-09-18 10:16 | PDOC ---
History of Present Illness - General Chief Complaint: Nasal Bleeding Stated Complaint: NOSE BLOOD/Eye bleed, on Plavix Time Seen by Provider: 09/18/17 09:40 History Source: Patient - History of Present Illness Initial Comments: 09/18/17 10:15 87F with a PMH of HTN and CVA 12/2016, and paroxysmal afib (03/2017) on Plavix since March presents with nose bleed since 7am this morning. Previous episode of nose bleed 2 days ago that resolved by itself after a few minutes. Patient also presents with some blood in left tear duct and in the mouth after coughing. Daughter said the patient kept pinching her nose but the bleed would resume every time she would let go. No other symptoms. 09/18/17 10:17 09/18/17 10:25 Past History - Past Medical History Allergies/Adverse Reactions: Allergies Allergy/AdvReac Type Severity Reaction Status Date / Time No Known Allergies Allergy Verified 09/18/17 09:31 Home Medications: Ambulatory Orders Amlodipine Besylate [Norvasc -] 5 mg PO DAILY 12/18/16 Calcium Carbonate/Vitamin D3 [Calcium 600 + Vit D 400 Softgl] 1 each PO DAILY Atorvastatin Ca [Lipitor] 20 mg PO HS 09/18/17 Clopidogrel Bisulfate [Plavix] 75 mg PO DAILY 09/18/17 Cancer: Yes (skin cancer) Cardiac Disorders: Yes CVA: Yes (mini stroke) COPD: No DVT: No HTN: Yes Hypercholesterolemia: No Seizures: No - Immunization History Td Vaccination: No TDAP Vaccination: No Immunization Up to Date: Yes - Suicide/Smoking/Psychosocial Hx Smoking History: Unknown if ever smoked Have you smoked in the past 12 months: No Number of Cigarettes Smoked Daily: 1 Information on smoking cessation initiated: No Hx Alcohol Use: No Drug/Substance Use Hx: No Substance Use Type: None Review of Systems - Review of Systems Able to Perform ROS?: Yes Is the patient limited Portuguese proficient: No Constitutional: No: Symptoms Reported HEENTM: Yes: See HPI, Nose Bleeding Respiratory: No: Symptoms reported Cardiac (ROS): No: Symptoms Reported ABD/GI: No: Symptoms Reported : No: Symptoms Reported Musculoskeletal: No: Symptoms Reported Integumentary: No: Symptoms Reported Neurological: No: Symptoms reported *Physical Exam - Vital Signs Last Vital Signs Temp Pulse Resp BP Pulse Ox 98.1 F 109 H 19 145/68 92 L 09/18/17 09:28 09/18/17 09:28 09/18/17 09:28 09/18/17 09:28 09/18/17 09:28 - Physical Exam General Appearance: Yes: Appropriately Dressed, Thin. No: Apparent Distress HEENT: positive: EOMI, NATALIIA, Other (blood in right nare. Source not visible anteriorly. some blood at R lacrimal duct.) Respiratory/Chest: positive: Lungs Clear, Normal Breath Sounds. negative: Respiratory Distress Cardiovascular: positive: Regular Rhythm, S1, S2, Tachycardia Gastrointestinal/Abdominal: positive: Normal Bowel Sounds, Flat, Soft Extremity: positive: Normal Capillary Refill Integumentary: positive: Normal Color, Dry, Warm Neurologic: positive: Fully Oriented, Alert, Normal Mood/Affect ED Treatment Course - LABORATORY CBC & Chemistry Diagram: 09/18/17 10:10 09/18/17 10:10 Medical Decision Making - Medical Decision Making 09/18/17 10:29 Suction for better visualization Nose bleed self resolved for now. Labs and coags pending. All negative. 09/18/17 11:36 09/18/17 11:43 Patient still saturating at 94% 09/18/17 11:59 patient a bit volume contracted. will repeat cbc after bolus of saline. Patient will go into Short stay obs. 09/18/17 13:22 Patient started bleeding again briefly. Treated with Afrin and nose tongs. *DC/Admit/Observation/Transfer Diagnosis at time of Disposition: Epistaxis - Referrals Referrals: Harry Francisco MD [Primary Care Provider] - - Patient Instructions - Post Discharge Activity
[2017-09-18 10:42] LABS: BASO % 0.7 % (0-2.0); EOS % 2.3 % (0-4.5); HEMATOCRIT 46.5 % (32.4-45.2); HEMOGLOBIN 14.8 GM/dL (10.7-15.3); LYMPH % 13.5 % (8-40); MCH 26.3 pg (25.7-33.7); MCHC 31.8 g/dl (32.0-36.0); MEAN CELL VOLUME 82.6 fl (80-96); MEAN PLT VOLUME 8.3 fl (7.5-11.1); MONO % 7.6 % (3.8-10.2); NEUT % 75.9 % (42.8-82.8); PLATELET COUNT 215 K/MM3 (134-434); RBC 5.63 M/mm3 (3.60-5.2); RDW 16.7 % (11.6-15.6)
--- NOTE | 2017-09-18 10:47 | PDOC ---
Attending Attestation - Resident Resident Name: Candido Cabrera - ED Attending Attestation I have performed the following: I have examined & evaluated the patient, The case was reviewed & discussed with the resident, I agree w/resident's findings & plan, Exceptions are as noted - HPI HPI: 09/18/17 10:48 87F with a PMH of HTN and CVA 12/2016, and paroxysmal afib (03/2017) on Plavix since March Presents with intermittent nosebleeds for 3 days. The patient also reports some bleeding from her left eye since yesterday. Reports loss of some clots. Denies fevers, chills or focal weakness/numbness. Denies chest pain/ shortness of breath. - Physicial Exam PE: 09/18/17 10:49 GENERAL: Awake, alert, in no acute distress HEAD: No signs of trauma EYES: +oozing of blood from L tear duct ENT: Initially slow oozing of blood from L nares, and pt coughing up blood as well. While afrin was obtained, pt stopped bleeding. NECK: Normal ROM, supple, no lymphadenopathy, JVD, or masses LUNGS: Breath sounds equal, clear to auscultation bilaterally. No wheezes, and no crackles. O2 sat 92% HEART: tachy but regular to 104, normal S1 and S2, no murmurs, rubs or gallops ABDOMEN: Soft, nontender, normoactive bowel sounds. No guarding, no rebound. No masses EXTREMITIES: Normal range of motion, no edema. No clubbing or cyanosis. No cords, erythema, or tenderness NEUROLOGICAL: Normal speech, cranial nerves intact, negative pronator drift, 5/ 5 strength in all 4 extremities, normal sensation to light touch in all 4 extremities SKIN: Warm, Dry, normal turgor, no rashes or lesions noted. - Medical Decision Making 09/18/17 10:51 87-year-old female with multiple medical problems, on Plavix presents with intermittent epistaxis for 3 days. This morning patient began to lose clots. Vitals remarkable for tachycardia to 109 on arrival and hypoxia to 92%. Although bleeding has stopped, the patient has high risk of rebleeding again as she took her Plavix yesterday. Unclear if liters anterior or posterior as the patient has spontaneously stopped bleeding while here in the emergency department. Will check labs, hold Plavix and likely admit the patient observation given recurrent bleeding. 09/18/17 11:54 Labs unremarkable, hemoglobin is 14.8. Patient is possibly slightly hemoconcentrated. Heart rate has normalized to 89 from 109. Patient continues to be mildly hypoxic to 93% on room air, although the patient's daughter reports that her oxygen saturation never goes above 95%. Chest x-ray is clear. No further bleeding events in the emergency department. Case discussed with the patient's primary doctor Dr. Francisco who recommends that we have her stop her Plavix and that he will follow up with her tomorrow. Discussed the patient's mild hypoxia and recurrent bleeding events at home, however he feels comfortable sending her home to follow-up with him tomorrow. Upon discussion with the patient's granddaughter, I will continue to observe the patient for a few more hours to ensure there are no further rebleeding events and also to repeat her hemoglobin. The patient wishes to go home, if her H&H is stable and she has no further bleeding events, we'll likely discharge the patient. 09/18/17 15:03 Repeat CBC with hemoglobin of 13 and hematocrit to 41. Hemoglobin previously was 14 and hematocrit was 46. Patient received a liter of fluid in between the repeat CBC and thus part of this drop is likely due to fluids. Patient had one brief rebleed that was quickly controlled with Afrin spray and pressure. Patient feels well and requests discharge home. O2 sat 95% on RA. Had a lengthy discussion with the patient's granddaughter who will be spending the night with the patient and feels comfortable taking her grandmother home. The patient's granddaughter is aware that the patient has a rebleed or develops any new, worsening or concerning symptoms that she should return to the emergency department immediately. I discussed the physical exam findings, ancillary test results and final diagnoses with the patient. I answered all of the patient's questions. The patient was satisfied with the care received and felt comfortable with the discharge plan and treatment plan. The patient will call their primary care physician within 24 hours to arrange follow-up and will return to the Emergency Department with any new, persistent or worsening symptoms. Discharge Disposition - Diagnosis Epistaxis - Discharge Dispostion Disposition: HOME Condition at time of disposition: Stable Last Admission D/C Date: 04/07/17 Admit: No - Referrals - Patient Instructions - Post Discharge Activity
[2017-09-18 10:48] LABS: ALBUMIN 3.4 g/dl (3.4-5.0); ALK PHOS 112 U/L (45-117); ANION GAP 9 (8-16); BILIRUBIN,TOTAL 0.3 mg/dL (0.2-1.0); BLOOD UREA NITROGEN 21 mg/dL (7-18); CHLORIDE 104 mmol/L (98-107); CO2 30 mmol/L (21-32); CREATININE 0.6 mg/dL (0.55-1.02); GLUCOSE,RANDOM 94 mg/dL (74-106); POTASSIUM 3.9 mmol/L (3.5-5.1); SGOT/AST 22 U/L (15-37); SGPT/ALT 27 U/L (12-78); SODIUM 143 mmol/L (136-145); TOT PROT 7.4 g/dl (6.4-8.2)
[2017-09-18 11:11] LABS: INR 1.1 (0.82-1.09); PROTHROMBIN TIME (PATIENT) 12.4 SEC (9.98-11.88)
[2017-09-18 11:14] LABS: ACTIVATED PTT 32.9 SECONDS (26.9-34.4)
[2017-09-18 13:03] VITALS: BP 134/53; PULSE 81; TEMP 97.9
[2017-09-18 14:24] LABS: BASO % 0.8 % (0-2.0); EOS % 1.5 % (0-4.5); HEMATOCRIT 41.5 % (32.4-45.2); HEMOGLOBIN 13.3 GM/dL (10.7-15.3); LYMPH % 16.5 % (8-40); MCH 26.2 pg (25.7-33.7); MCHC 31.9 g/dl (32.0-36.0); MEAN PLT VOLUME 8.4 fl (7.5-11.1); MONO % 6.1 % (3.8-10.2); NEUT % 75.1 % (42.8-82.8); PLATELET COUNT 203 K/MM3 (134-434); RBC 5.06 M/mm3 (3.60-5.2); RDW 16.3 % (11.6-15.6); WHITE BLOOD COUNT 7.8 K/mm3 (4.0-10.0)
== END 2017-09-18 15:53 | disposition home or self-care (01) ==
LOC: JER 09:17 → JERBED 12:59 → UNDOADMOB 12:59 → JERBED 15:29 → JER 15:53
DX: R04.0 Epistaxis (principal); I48.0 Paroxysmal atrial fibrillation; Z79.01 Long term (current) use of anticoagulants; Z86.73 Personal history of transient ischemic attack (TIA), and cerebral infarction without residual deficits; I10 Essential (primary) hypertension; Z85.828 Personal history of other malignant neoplasm of skin
CPT/HCPCS: 36415; 71045-TC; 80053; 85025; 85610; 85730; 86850; 86900; 86901; 99284-25

== ENCOUNTER 2018-05-29 12:56 | Emergency (ER) | payer OTHER ==
[2018-05-29 13:01] VITALS: TEMP 97.6; BMI 26.2
--- NOTE | 2018-05-29 14:15 | PDOC ---
Attending Attestation - Resident Resident Name: Karina Uriarte - ED Attending Attestation I have performed the following: I have examined & evaluated the patient, The case was reviewed & discussed with the resident, I agree w/resident's findings & plan, Exceptions are as noted - HPI HPI: 05/29/18 15:23 Ms Gutierrez is an 87 yo F who presents to the ER with granddaughter due to lightheadedness Pt has a h/o HTN, HLD, paroxysmal A. fib, and CVA (12/2016) She was noted to have intermittent lightheadedness that started 2 days ago, she does not think that she had vertigo No chest pain No palpitations No nausea or diaphoresis No recent travel Since arrival to the ER, pt feels better - Physicial Exam PE: 05/29/18 15:25 Pt is awake and alert Answers questions appropriately RRR - Medical Decision Making 05/29/18 15:52 Pt presents to the ER with resolved lightheadedness She reports mild headache No chest pain Will do: Labs EKG Pain medications Re Assess EKG: NSR rate of 70 bpm, axis nml, No st elevations or depressions, T waves upright,
--- NOTE | 2018-05-29 14:39 | PDOC ---
History of Present Illness - General Chief Complaint: Shortness of Breath Stated Complaint: HEADACHE/SHORTNESS OF BREATH Time Seen by Provider: 05/29/18 14:13 - History of Present Illness Initial Comments: 05/29/18 14:39 87 year old woman with past medical history of HTN, HLD, paroxysmal A. fib (2016) on Plavix and CVA (12/2016) who presents with intermittent lightheadedness that started 2 days ago. The patient was walking and felt lightheaded as if she might pass out and had to hold on to something to steady herself. She denies loss of consciousness or head trauma. Denies chest pain, nausea, diaphoresis, recent illness or fever. The patient complains of shortness of breath that is chronic for her. Per the patient's granddaughter the patient has had issues with PO intake and drinking water and granddaughter is concerned for patient nutritional status. The patient notes that since being in the waiting room she has felt better and granddaughter notes patient's color is improved. The patient denies recent diarrhea, constipation or vomiting. At bedside the patient only complains of frontal headache but denies any other symptoms. PMHX: as in HPI PSHX: see below Meds: see below Allergies: NKDA Tob: none Etoh: none Rec drugs:none PCP: Susana Past History - Past Medical History Allergies/Adverse Reactions: Allergies Allergy/AdvReac Type Severity Reaction Status Date / Time No Known Allergies Allergy Verified 05/29/18 13:02 Home Medications: Ambulatory Orders Amlodipine Besylate [Norvasc -] 5 mg PO DAILY 12/18/16 Calcium Carbonate/Vitamin D3 [Calcium 600 + Vit D 400 Softgl] 1 each PO DAILY Atorvastatin Ca [Lipitor] 20 mg PO HS 09/18/17 Clopidogrel Bisulfate [Plavix] 75 mg PO DAILY 09/18/17 Cancer: Yes (skin cancer) Cardiac Disorders: Yes CVA: Yes (mini stroke) COPD: No DVT: No HTN: Yes Hypercholesterolemia: Yes Seizures: No - Immunization History Td Vaccination: No TDAP Vaccination: No Immunization Up to Date: Yes - Suicide/Smoking/Psychosocial Hx Smoking History: Unknown if ever smoked Have you smoked in the past 12 months: No Number of Cigarettes Smoked Daily: 1 Hx Alcohol Use: No Drug/Substance Use Hx: No Substance Use Type: None Review of Systems - Review of Systems Able to Perform ROS?: Yes Is the patient limited Albanian proficient: No Constitutional: No: Chills, Diaphoresis, Fever, Weakness Respiratory: No: Cough, Orthopnea, Shortness of Breath Cardiac (ROS): Yes: See HPI, Lightheadedness. No: Chest Pain, Palpitations, Syncope, Chest Tightness ABD/GI: No: Constipated, Diarrhea, Nausea, Vomiting : No: Burning, Dysuria, Hematuria, Incontinence Musculoskeletal: No: Back Pain, Muscle Pain, Muscle Weakness Integumentary: No: Sweating Neurological: Yes: See HPI, Headache. No: Numbness, Paresthesia, Tingling *Physical Exam - Vital Signs Last Vital Signs Temp Pulse Resp BP Pulse Ox 97.6 F 86 24 133/59 93 L 05/29/18 12:59 05/29/18 12:59 05/29/18 12:59 05/29/18 12:59 05/29/18 12:59 - Physical Exam Comments: 05/29/18 15:26 GENERAL: Awake, alert, and fully oriented, in no acute distress HEAD: No signs of trauma, normocephalic, atraumatic EYES: EOMI, sclera anicteric, conjunctiva clear ENT: oropharynx clear without exudates. Moist mucosa NECK: Normal ROM, supple LUNGS: No distress, speaks full sentences, clear to auscultation bilaterally HEART: Regular rate and rhythm, normal S1 and S2, no murmurs, rubs or gallops, peripheral pulses normal and equal bilaterally. ABDOMEN: Soft, nontender, normoactive bowel sounds. No guarding, no rebound. No masses EXTREMITIES : Normal inspection, Normal range of motion, no edema. No clubbing or cyanosis. NEUROLOGICAL: Normal speech, normal gait, no focal sensorimotor deficits SKIN: Warm, Dry, normal turgor, no rashes or lesions noted ED Treatment Course - LABORATORY CBC & Chemistry Diagram: 05/29/18 15:17 05/29/18 15:17 Medical Decision Making - Medical Decision Making 05/29/18 15:19 87 year old woman with past medical history of HTN, HLD, paroxysmal A. fib (2016) on Plavix and CVA (12/2016) who presents with intermittent lightheadedness that started 2 days ago. The patient was walking and felt lightheaded as if she might pass out and had to hold on to something to steady herself. She denies loss of consciousness or head trauma. Denies chest pain, nausea, diaphoresis, recent illness or fever. The patient complains of shortness of breath that is chronic for her. Per the patient's granddaughter the patient has had issues with PO intake and drinking water and granddaughter is concerned for patient nutritional status. The patient notes that since being in the waiting room she has felt better and granddaughter notes patient's color is improved. DDX including but not limited to: dehydration vs arrythmia vs UTI vs migraine W/U: - cbc, cmp, PT/INR, PTT, cardiac profile - EKG TX: - 1L NS ED Course: Patient assessed. stable. sitting in bed comfortably 05/29/18 16:04 Patient reassessed. stable. feels improved. 05/29/18 17:03 Labs: unremarkable. 05/29/18 17:41 Patient and family eager to go. Feel improved. Patient stable for discharge. Given follow up instructions and strict return precautions. Patient expressed understanding and agreed to plan. *DC/Admit/Observation/Transfer Diagnosis at time of Disposition: Lightheaded - Discharge Dispostion Disposition: HOME Condition at time of disposition: Stable Decision to Admit order: No - Referrals Referrals: Harry Francisco MD [Primary Care Provider] - Toni Horner MD [Non Staff, Medical] - - Patient Instructions Printed Discharge Instructions: DI for Dizziness-Nonvertigo Additional Instructions: You were seen in the ED for complaints of lightheadedness. In the ED you were evaluated with labwork and treated with fluids and pain relievers. Your results were unremarkable. There does not appear to be an acute need for immediate hospitalization. You are advised to follow up with your primary care physician within 1 week. Return to the ED immediately if you experience worsening lightheadedness, vertigo, loss of consciousness, worsening headaches, nausea, vomiting, fevers, chest pain, shortness of breath or abdominal pain. - Post Discharge Activity
[2018-05-29] MEDS ORDERED: SODIUM CHLORIDE 1,000 ML IV SCH (14:45)
[2018-05-29 15:25] LABS: URINE APPEARANCE CLEAR; URINE BILIRUBIN NEGATIVE (<2.0 mg/dL); URINE COLOR STRAW; URINE GLUCOSE (UA) NEGATIVE (NEGATIVE); URINE KETONE NEGATIVE (NEGATIVE); URINE LEUK ESTERASE TRACE (NEGATIVE); URINE NITRITE NEGATIVE (NEGATIVE); URINE PROTEIN NEGATIVE (NEGATIVE); URINE UROBILINOGEN NEGATIVE mg/dL (0.2-1.0)
[2018-05-29] MEDS ORDERED: METOCLOPRAMIDE HCL INJECTION 10 MG/2 ML VIAL IVPUSH ONE (15:29)
[2018-05-29] MEDS ORDERED: ACETAMINOPHEN 1000 MG/100 ML VIAL (NON FORMULARY) IVPB ONE (15:29)
[2018-05-29 15:31] LABS: EPI CELLS RARE /HPF (FEW)
[2018-05-29] MEDS ORDERED: METOCLOPRAMIDE HCL INJECTION 10 MG/2 ML VIAL ONE (15:37)
[2018-05-29] MEDS ORDERED: ACETAMINOPHEN INJECTION 100 ML IVPB ONE (15:38)
[2018-05-29 15:57] LABS: BASO % 0.8 % (0-2.0); HEMATOCRIT 43.8 % (32.4-45.2); HEMOGLOBIN 14.6 GM/dL (10.7-15.3); LYMPH % 21.5 % (8-40); MCHC 33.5 g/dl (32.0-36.0); MEAN CELL VOLUME 83.8 fl (80-96); MEAN PLT VOLUME 8.6 fl (7.5-11.1); MONO % 9.6 % (3.8-10.2); NEUT % 65.1 % (42.8-82.8); PLATELET COUNT 231 K/MM3 (134-434); RBC 5.23 M/mm3 (3.60-5.2); RDW 15.5 % (11.6-15.6); WHITE BLOOD COUNT 5.8 K/mm3 (4.0-10.0)
[2018-05-29 16:11] LABS: INR 1.04 (0.83-1.09); PROTHROMBIN TIME (PATIENT) 11.7 SEC (9.7-13.0)
[2018-05-29 16:13] LABS: ACTIVATED PTT 33.5 SECONDS (25.2-36.5)
[2018-05-29 16:52] LABS: ALBUMIN 3.6 g/dl (3.4-5.0); ANION GAP 7 MMOL/L (8-16); BILIRUBIN,TOTAL 0.3 mg/dL (0.2-1); BLOOD UREA NITROGEN 15 mg/dL (7-18); CALCIUM 8.9 mg/dL (8.5-10.1); CHLORIDE 105 mmol/L (98-107); CO2 28 mmol/L (21-32); CREATININE 0.5 mg/dL (0.55-1.3); GLUCOSE,RANDOM 96 mg/dL (74-106); POTASSIUM 4.5 mmol/L (3.5-5.1); SGOT/AST 24 U/L (15-37); SGPT/ALT 25 U/L (13-61); SODIUM 140 mmol/L (136-145); TOT PROT 7.4 g/dl (6.4-8.2)
[2018-05-29 16:53] LABS: ALK PHOS 101 U/L (45-117)
[2018-05-29 18:57] VITALS: BP 136/60; PULSE 81
--- NOTE | 2018-05-30 09:58 | EKG ---
Test Reason : Blood Pressure : / mmHG Vent. Rate : 070 BPM Atrial Rate : 070 BPM P-R Int : 170 ms QRS Dur : 100 ms QT Int : 398 ms P-R-T Axes : 073 014 012 degrees QTc Int : 429 ms POOR DATA QUALITY, INTERPRETATION MAY BE ADVERSELY AFFECTED NORMAL SINUS RHYTHM INCOMPLETE RIGHT BUNDLE BRANCH BLOCK BORDERLINE ECG WHEN COMPARED WITH ECG OF 07-APR-2017 10:10, PREMATURE VENTRICULAR COMPLEXES ARE NO LONGER PRESENT ST NO LONGER ELEVATED IN INFERIOR LEADS Confirmed by SERA MENG MD ([id number]) on 05/30/2018 9:58:17 AM Referred By: Confirmed By:SERA MENG MD
== END 2018-05-29 18:30 | disposition home or self-care (01) ==
LOC: JER 12:56
PROC: 3E033NZ Introduction of Analgesics, Hypnotics, Sedatives into Peripheral Vein, Percutaneous Approach (ICD-10-PCS; principal; 2018-05-29)
PROC: 3E033GC Introduction of Other Therapeutic Substance into Peripheral Vein, Percutaneous Approach (ICD-10-PCS; 2018-05-29)
DX: R42 Dizziness and giddiness (principal); I10 Essential (primary) hypertension; E78.5 Hyperlipidemia, unspecified; I48.91 Unspecified atrial fibrillation; Z79.01 Long term (current) use of anticoagulants
CPT/HCPCS: 36415; 80053; 81003; 81015; 82550; 84484; 85025; 85610; 85730; 87086; 93005; 93010; 96374; 96375; 99283-25; J0131; J7030